=== PATIENT | male | born 1975 | race Caucasian/White ===

== ENCOUNTER 2017-07-30 07:23 | Observation (INO) | payer OTHER ==
--- NOTE | 2017-07-30 08:09 | PDOC ---
History of Present Illness - General Chief Complaint: Pain Stated Complaint: SHORTNESS OF BREATH Time Seen by Provider: 07/30/17 07:58 - History of Present Illness Initial Comments: 07/30/17 09:11 The patient is a 41 year old male with a history of GERD who presents for evaluation of abdominal pain. The patient reports acute onset poorly described abdominal pain beginning yesterday evening and remained constant prompting his presentation to the ED today. He reports some radiation into his back and associated nausea and 2 episodes of non-bilious, non-bloody vomiting. He denies fevers, chills, SOB, Chest pain, or changes with urination or bowel movements with a normal bowel movement earlier today. He denies having symptoms like this in the past and states that this does not feel like his normal GERD. Past History - Past Medical History Allergies/Adverse Reactions: Allergies Allergy/AdvReac Type Severity Reaction Status Date / Time No Known Allergies Allergy Verified 07/30/17 07:53 Home Medications: Ambulatory Orders Amitriptyline HCl [Elavil -] 40 mg PO DAILY 07/30/17 Esomeprazole Magnesium [Nexium 24Hr] 40 mg PO DAILY 07/30/17 GI Disorders: Yes (gerd) Other medical history: migraines - Suicide/Smoking/Psychosocial Hx Smoking Status: Yes Smoking History: Current every day smoker Have you smoked in the past 12 months: No Number of Cigarettes Smoked Daily: 20 Information on smoking cessation initiated: No Hx Alcohol Use: No Drug/Substance Use Hx: No Substance Use Type: None Review of Systems - Review of Systems Comments:: 07/30/17 09:14 Constitutional: No fevers, chills, fatigue, malaise HEENT: No Rhinorrhea, nasal congestion, Cardiovascular: No chest pain, syncope, palpitations, lightheadedness Respiratory: No Cough, SOB, Hemoptysis, Gastrointestinal: Abdominal pain, nausea, vomiting. No Constipation, Diarrhea, Melena Genitourinary: No Dysuria, Frequency, Urgency, Hesitancy, Hematuria, Flank pain Musculoskeletal: No Myalgia, arthralgia Skin: No rashes, bruising, pallor Neurologic: No Headache, Dizziness, Numbness, Weakness, or Tingling *Physical Exam - Vital Signs Last Vital Signs Temp Pulse Resp BP Pulse Ox 97.7 F 95 H 18 137/92 98 07/30/17 07:48 07/30/17 07:48 07/30/17 07:48 07/30/17 07:48 07/30/17 07:48 - Physical Exam Comments: 07/30/17 09:15 General Appearance: Nourished. No Apparent Distress HEENT: EOMI, STEPHAN. No Pharyngeal Erythema, Tonsillar Exudate, Tonsillar Erythema Neck: No Cervical Lymphadenopathy Respiratory/Chest: Lungs Clear, Normal Breath Sounds. No Crackles, Rales, Rhonchi, Wheezing Cardiovascular: Regular Rhythm, Regular Rate. No Murmur, Gallops, Rubs Gastrointestinal/Abdominal: Normal Bowel Sounds, Soft. Diffuse tenderness to palpation worse in the epigastric region. No Guarding, Rebound, Musculoskeletal: No CVA Tenderness Extremity: Normal Capillary Refill Integumentary: Normal Color, Dry, Warm Neurologic: Fully Oriented, Alert, Normal Mood/Affect, Normal Response, ED Treatment Course - LABORATORY CBC & Chemistry Diagram: 07/30/17 08:50 07/30/17 08:50 Medical Decision Making - Medical Decision Making 07/30/17 09:15 The patient is a 41 year old male with a history of GERD who presents for evaluation of abdominal pain. Differential includes but is not limited to: Gastritis, peptic ulcer, pancreatitis, cholecystitis, ACS, infectious, metabolic derangement. Given his physical exam, his symptoms could possibly be caused by gastritis or pancreatitis. We will treat with pepcid, maalox and fluids. We will send a cbc, cmp, troponin, EKG, and lipase. Given his epigastric pain with radiation to the back, we will obtain a gallbladder US to evaluate for cholecystitis. We will continue to monitor and reassess. 07/30/17 12:09 CBC was unremarkable. CMP demonstrate some elevations in his liver enzymes. Gallbladder US demonstrated significant sludge in the gallbladder without evidence of cholecystitis. We discussed the case with Dr. De La Rosa who agrees with further investigation to the patient's symptoms including MRCP and agrees with admission for further management. It is likely his symptoms are due to choledocolithiasis given the sludge in his gallbladder and liver enzyme elevations. We discussed the case with the hospitalist team who agrees with admission. *DC/Admit/Observation/Transfer Diagnosis at time of Disposition: Choledocholithiasis - Discharge Dispostion Condition at time of disposition: Stable Admit: Yes
[2017-07-30] MEDS ORDERED: FAMOTIDINE 20 MG/50 ML IVPB 50 ML IVPB ONE ×2 (08:15→08:44)
[2017-07-30] MEDS ORDERED: SODIUM CHLORIDE 1,000 ML IV STA (08:16)
[2017-07-30] MEDS ORDERED: ONDANSETRON 4 MG/2 ML VIAL IVPUSH ONE (08:30)
[2017-07-30] MEDS ORDERED: MAG HYDROX/AL HYDROX/SIMETH 30 ML UNIT-DOSE CUP PO ONE (08:30)
[2017-07-30] MEDS ORDERED: ACETAMINOPHEN 325 MG TABLET (FP) PO ONE (08:32)
[2017-07-30] MEDS ORDERED: ONDANSETRON 4 MG/2 ML VIAL ONE (08:43)
[2017-07-30] MEDS ORDERED: MAG HYDROX/AL HYDROX/SIMETH 30 ML UNIT-DOSE CUP ONE (08:43)
[2017-07-30] MEDS ORDERED: ACETAMINOPHEN 325 MG TABLET (FP) ONE (08:43)
[2017-07-30 08:58] LABS: BASOPHIL 0.6 % (0-2.0); EOSINOPHIL 0.8 % (0-4.5); MCH 27.9 pg (25.7-33.7); MCHC 33.5 g/dl (32.0-35.9); MEAN CELL VOLUME 83.2 fl (80-96); NEUTROPHILS 75.9 % (42.8-82.8); PLATELET COUNT 146 K/MM3 (134-434); RDW 14.3 % (11.9-15.9); WHITE BLOOD COUNT 6.9 K/mm3 (4.0-10.0)
[2017-07-30 09:32] LABS: ALBUMIN 3.8 g/dl (3.4-5.0); ANION GAP 7 (8-16); BILIRUBIN,TOTAL 0.7 mg/dL (0.2-1.0); CALCIUM 8.6 mg/dL (8.5-10.1); CO2 29 mmol/L (21-32); GLUCOSE,RANDOM 147 mg/dL (74-106); SGOT/AST 161 U/L (15-37); SGPT/ALT 142 U/L (12-78); TOT PROT 7.4 g/dl (6.4-8.2)
--- NOTE | 2017-07-30 09:33 | PDOC ---
Attending Attestation - Resident Resident Name: Raphael Pritchardel - ED Attending Attestation I have performed the following: I have examined & evaluated the patient, The case was reviewed & discussed with the resident, I agree w/resident's findings & plan, Exceptions are as noted - HPI HPI: 07/30/17 09:28 41 year old M c/ hx of obesity, chronic daily headaches, GERD p/w epigastric abdominal pain since 3 am. The patient states that he woke up with 3 am with upper abdominal pain. Tried to vomit twice to try to relieve the pain but didn' t work. States feels differently from his GERD. Radiates towards his back. Denies fevers, chills, diarrhea. - Physicial Exam PE: 07/30/17 09:33 GENERAL: NAD, AAOx3, obese ABD: TTP epigastric, LUQ, RUQ, no rebound, no guarding. Shankar sign negative. - Medical Decision Making 07/30/17 09:34 Vital Signs Temp Pulse Resp BP Pulse Ox 97.7 F 95 H 18 137/92 98 07/30/17 07:48 07/30/17 07:48 07/30/17 07:48 07/30/17 07:48 07/30/17 07:48 41 year old M p/w epigastric pain. Differential includes gastritis, pancreatitis, biliary colic, acute lizette Labs, pain control, RUQ ultrasound. If workup is unrevealing, and patient has uncontrollable pain or persistent pain , consider CT abdomen and pelvis. Heart Score/ECG Review #1 ECG reviewed & interpreted by me at: 09:00 07/30/17 10:38 NSR 85, no std/arturo, normal axis, normal intervals, QTC 452 msec
[2017-07-30 09:34] LABS: ALK PHOS 135 U/L (45-117); CPK 95 IU/L (39-308); TROPONIN I < 0.02 ng/ml (0.00-0.05)
[2017-07-30] MEDS ORDERED: morphine CARPU-JECT 4 MG/1 ML DISP.SYRIN IVPUSH ONE (10:02)
[2017-07-30] MEDS ORDERED: morphine CARPU-JECT 10 MG/1 ML DISP.SYRIN ONE (10:07)
[2017-07-30 10:11] LABS: URINE APPEARANCE CLEAR; URINE BILIRUBIN NEGATIVE (NEGATIVE); URINE BLOOD NEGATIVE (NEGATIVE); URINE COLOR YELLOW; URINE GLUCOSE (UA) NEGATIVE (NEGATIVE); URINE KETONE NEGATIVE (NEGATIVE); URINE NITRITE NEGATIVE (NEGATIVE); URINE PROTEIN NEGATIVE (NEGATIVE); URINE UROBILINOGEN 4.0 E.U/dl mg/dL (0.2-1.0)
[2017-07-30] MEDS ORDERED: SODIUM CHLORIDE 1,000 ML IV SCH (12:45)
--- NOTE | 2017-07-30 13:16 | PN ---
Progress Note (short form) - Note Progress Note: GI Note ( covering Dr Rosenberg) : Esequiel informs me that Dr Pace is his GI physician and he would like for him to consult. Please consult Dr Pace.
--- NOTE | 2017-07-30 13:34 | HP ---
CHIEF COMPLAINT: abdominal pain PCP: HISTORY OF PRESENT ILLNESS: 41 yea old male with a history of GERD, on PPIs, c/o of abdominal pain, nausea, NBNB vomiting, 12hrs after eating out at a [place] buffet. Pain is 10/10, sharp , radiating to back. He states he has had a similar episodes last Monday after eating, although symptoms were not as severe. Patient denies fever, chills, diarrhea. Patient endorses 30lb weight gain in the past few months. He admits to non healthy diet, no exercise, does not follow primary physician. ER course was notable for: -ultrasound showing fatty liver Recent Travel: no PAST MEDICAL HISTORY: GERD PAST SURGICAL HISTORY: none Social History: Smoking:no Alcohol:no Drugs: no Family History: Allergies No Known Allergies Allergy (Verified 07/30/17 07:53) HOME MEDICATIONS: Home Medications Medication Instructions Recorded Amitriptyline HCl [Elavil -] 40 mg PO DAILY 07/30/17 Esomeprazole Magnesium [Nexium 40 mg PO DAILY 07/30/17 24Hr] REVIEW OF SYSTEMS CONSTITUTIONAL: Positive: weight gain Absent: fever, chills, diaphoresis, generalized weakness, malaise, loss of appetite, weight change HEENT: Absent: rhinorrhea, nasal congestion, throat pain, throat swelling, difficulty swallowing, mouth swelling, ear pain, eye pain, visual changes CARDIOVASCULAR: Absent: chest pain, syncope, palpitations, irregular heart rate, lightheadedness , peripheral edema RESPIRATORY: Absent: cough, shortness of breath, dyspnea with exertion, orthopnea, wheezing, stridor, hemoptysis GASTROINTESTINAL: Positive: abdominal pain, abdominal distension, nausea, vomiting, Absent: diarrhea, constipation, melena, hematochezia GENITOURINARY: Absent: dysuria, frequency, urgency, hesitancy, hematuria, flank pain, genital pain MUSCULOSKELETAL: Absent: myalgia, arthralgia, joint swelling, back pain, neck pain SKIN: Absent: rash, itching, pallor HEMATOLOGIC/IMMUNOLOGIC: Absent: easy bleeding, easy bruising, lymphadenopathy, frequent infections ENDOCRINE: Absent: unexplained weight gain, unexplained weight loss, heat intolerance, cold intolerance NEUROLOGIC: Absent: headache, focal weakness or paresthesias, dizziness, unsteady gait, seizure, mental status changes, bladder or bowel incontinence PSYCHIATRIC: Absent: anxiety, depression, suicidal or homicidal ideation, hallucinations. PHYSICAL EXAMINATION GENERAL: obese, awake, alert, and fully oriented, in no acute distress. HEAD: Normal with no signs of trauma. EYES: Pupils equal, round and reactive to light, extraocular movements intact, sclera anicteric, conjunctiva clear. No lid lag. xanthmoma EARS, NOSE, THROAT: Ears normal, nares patent, oropharynx clear without exudates. Moist mucous membranes. NECK: Normal range of motion, supple without lymphadenopathy, JVD, or masses. LUNGS: Breath sounds equal, clear to auscultation bilaterally. No wheezes, and no crackles. No accessory muscle use. HEART: Regular rate and rhythm, normal S1 and S2 without murmur, rub or gallop. ABDOMEN: obese, Soft, nontender, not distended, normoactive bowel sounds, no guarding, no rebound, no masses. No hepatomegaly or splenomegaly. MUSCULOSKELETAL: Normal range of motion at all joints. No bony deformities or tenderness. No CVA tenderness. UPPER EXTREMITIES: 2+ pulses, warm, well-perfused. No cyanosis. No clubbing. No peripheral edema. LOWER EXTREMITIES: 2+ pulses, warm, well-perfused. No calf tenderness. No peripheral edema. NEUROLOGICAL: Cranial nerves II-XII intact. Normal speech. Normal gait. PSYCHIATRIC: Cooperative. Good eye contact. Appropriate mood and affect. SKIN: Warm, dry, normal turgor, no rashes or lesions noted, normal capillary refill. ASSESSMENT/PLAN: 41 year old male with a medical history of GERD, presents with complaints of abdominal pain, n, v, x 1 day admitted under observation for gastritis. #abdominal pain secondary to gastroenteritis -IVF -pain control -slowly increase po intake -low fat/carb meal -US showing fatty liver; bile ducts normal #transaminitis secondary to fatty liver -advise weight loss, diet exercise -hemoglobin a1c -lipid panel #GERD: -protonix VTE: SCD Disposition: obs; f/u GI outpatient Problem List - Problem (1) Gastroenteritis Code(s): K52.9 - NONINFECTIVE GASTROENTERITIS AND COLITIS, UNSPECIFIED (2) Fatty liver Code(s): K76.0 - FATTY (CHANGE OF) LIVER, NOT ELSEWHERE CLASSIFIED (3) Chronic GERD Code(s): K21.9 - GASTRO-ESOPHAGEAL REFLUX DISEASE WITHOUT ESOPHAGITIS Visit type - Emergency Visit Emergency Visit: Yes ED Registration Date: 07/30/17 Care time: The patient presented to the Emergency Department on the above date and was hospitalized for further evaluation of their emergent condition. - New Patient This patient is new to me today: Yes Date on this admission: 07/30/17 - Critical Care Critical Care patient: No
[2017-07-30] MEDS: SODIUM CHLORIDE 1,000 ML IV SCH ×2 (13:56→21:57)
--- NOTE | 2017-07-30 14:05 | HOSP ---
Subjective - Review of Symptoms General: Yes: Malaise, Appetite HEENT: No: Head Aches, Visual Changes, Eye Pain, Ear Pain, Dysphasia, Sinus Congestion, Post Nasal Drip, Sore Throat, Other Pulmonary: No: Dyspnea, Cough, Pleuritic Chest Pain, Other Cardiovascular: No: Chest Pain, Palpitations, Orthopnea, Paroxysmal Noc. Dyspnea , Edema, Light Headedness, Other Gastrointestinal: Yes: Nausea, Vomiting, Abdominal Pain Genitourinary: No: Dysuria, NOSYM, Frequency, Incontinence, Hematuria, Retention , Other Musculoskeletal: Yes: No Symptoms Physical Examination Vital Signs: Vital Signs Temperature 97.7 F 07/30/17 07:48 Pulse Rate 95 H 07/30/17 07:48 Respiratory Rate 18 07/30/17 07:48 Blood Pressure 137/92 07/30/17 07:48 O2 Sat by Pulse Oximetry (%) 98 07/30/17 07:48 Constitutional: Yes: Well Nourished, No Distress, Calm Eyes: Yes: WNL, Conjunctiva Clear, EOM Intact HENT: Yes: WNL Neck: Yes: WNL Cardiovascular: Yes: WNL, Regular Rate and Rhythm, S3 Respiratory: Yes: WNL, Regular, CTA Bilaterally Gastrointestinal: Yes: Abdomen, Obese, Distention, Hypoactive Bowel Sounds, Tenderness ...Rectal Exam: Yes: Deferred Peripheral Pulses: Left Radial: 2+, Right Radial: 2+ Integumentary: Yes: WNL Neurological: Yes: WNL, Alert, Oriented Hospitalist Encounter Assessment: this is a y/o male patient without any PMH presented to the ER with abdominal pain and tenderness that started around 2am, according to the patient he consumed [place] buffet 12 hours prior, he came home in the afternoon didnt feel well ate some grahm crackers and then later on he induced himself to vomit twice to feel better - patient denied any fever or chills prior to the that, and stated that the vomit was clear liquid. 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
--- NOTE | 2017-07-30 14:47 | CON.GI ---
Consult Consult Specialty:: GI Reason for Consultation:: abdominal pain - History of Present Illness Chief Complaint: abdominal pain History of Present Illness: 41 M with h/o GERD on PPI at home states he ate a large meal at [employer] 12 hours prior to onset of symptoms. States upper abdominal pain. Self-induced vomiting x 2 with no relief. On admission, lipase normal, AST/ALT 2-3 x normal. U/S shows normal ducts, and large, fatty liver. Glucose 147. - History Source History Provided By: Patient, Medical Record Limitations to Obtaining History: No Limitations - Past Medical History Gastrointestinal: Yes: GERD - Alcohol/Substance Use Hx Alcohol Use: No - Smoking History Smoking history: Current every day smoker (PPD) Have you smoked in the past 12 months: No Aproximately how many cigarettes per day: 20 Home Medications - Allergies Allergies/Adverse Reactions: Allergies Allergy/AdvReac Type Severity Reaction Status Date / Time No Known Allergies Allergy Verified 07/30/17 07:53 - Home Medications Home Medications: Ambulatory Orders Amitriptyline HCl [Elavil -] 40 mg PO DAILY 07/30/17 Esomeprazole Magnesium [Nexium 24Hr] 40 mg PO DAILY 07/30/17 Physical Exam-GI Vital Signs: Vital Signs Temperature 97.7 F 07/30/17 07:48 Pulse Rate 95 H 07/30/17 07:48 Respiratory Rate 18 07/30/17 07:48 Blood Pressure 137/92 07/30/17 07:48 O2 Sat by Pulse Oximetry (%) 98 07/30/17 07:48 Constitutional: Yes: Well Nourished, Obese (weight 260, height 5'10") Neck: Yes: Supple Cardiovascular: Yes: Regular Rate and Rhythm Respiratory: Yes: CTA Bilaterally ...Auscultate: Yes: Normoactive Bowel Sounds ...Palpate: Yes: Soft, Tenderness, Epigastium Labs: CBC, BMP 07/30/17 08:50 07/30/17 08:50 Hepatic Panel Total Bilirubin 0.7 mg/dL (0.2-1.0) 07/30/17 08:50 AST 161 U/L (15-37) H 07/30/17 08:50 ALT 142 U/L (12-78) H 07/30/17 08:50 Alkaline Phosphatase 135 U/L (45-117) H 07/30/17 08:50 Albumin 3.8 g/dl (3.4-5.0) 07/30/17 08:50 Imaging - Results Ultrasound: Report Reviewed (Enlarged fatty liver, no biliary dilatatioon.) Assessment/Plan Likely acute enlargement of liver secondary to very large high fat, high CHO meal. bile ducts normal LFTs likely represent steatohepatitis Agree with lipid profile, A1c. Patient likely developing metabolic syndrome. Trend LFTs Diabetic diet
[2017-07-30 15:12] LABS: URINE LEUK ESTERASE Negative (NEGATIVE)
[2017-07-30 15:39] LABS: THYROID STIMULATING HORMONE 0.98 uIU/ml (0.358-3.74)
[2017-07-30 16:07] VITALS: BMI 37.3
[2017-07-31] MEDS: SODIUM CHLORIDE 1,000 ML IV SCH ×3 (04:00→17:46)
[2017-07-31 06:09] LABS: BASOPHIL 0.6 % (0-2.0); EOSINOPHIL 1.4 % (0-4.5); MCH 28.6 pg (25.7-33.7); MCHC 34.4 g/dl (32.0-35.9); MEAN CELL VOLUME 83.2 fl (80-96); NEUTROPHILS 74.9 % (42.8-82.8); PLATELET COUNT 154 K/MM3 (134-434); RDW 14.5 % (11.9-15.9); WHITE BLOOD COUNT 5.6 K/mm3 (4.0-10.0)
[2017-07-31 06:46] LABS: ALBUMIN 3.3 g/dl (3.4-5.0); ALK PHOS 148 U/L (45-117); ANION GAP 6 (8-16); BILIRUBIN,TOTAL 0.9 mg/dL (0.2-1.0); CALCIUM 8.2 mg/dL (8.5-10.1); CO2 27 mmol/L (21-32); GLUCOSE,RANDOM 93 mg/dL (74-106); SGOT/AST 207 U/L (15-37); SGPT/ALT 344 U/L (12-78); TOT PROT 6.4 g/dl (6.4-8.2)
[2017-07-31] MEDS ORDERED: PT OWN MED DRAWER 7, Y5N ONE (09:07)
[2017-07-31] MEDS: AMITRIPTYLINE HCL 10 MG TABLET (FP) PO SCH (09:35)
[2017-07-31] MEDS: PANTOPRAZOLE SODIUM 40 MG in SODIUM CHLORIDE 100 ML IVPB SCH (10:08)
--- NOTE | 2017-07-31 16:22 | PN ---
Physical Exam: SUBJECTIVE: Patient seen and examined at the bedside. He denies any shortness of breath or abdominal pain. States he is an unhealthy eater and 1 pack a day smoker. Admits to gaining apx 40 lbs in six months. OBJECTIVE: Vital Signs Period Temp Pulse Resp BP Sys/Hilliard Pulse Ox Last 24 Hr 97.3 F-98.4 F 73-99 18-18 109-121/64-69 99 GENERAL: The patient is awake, alert, and fully oriented, in no acute distress. HEAD: Normal with no signs of trauma. EYES: PERRL, extraocular movements intact, sclera anicteric, conjunctiva clear. No ptosis. ENT: Ears normal, nares patent, oropharynx clear without exudates, moist mucous membranes. NECK: Trachea midline, full range of motion, supple. LUNGS: +scattered expiratory wheezing, tolerating room air, in no acute respiratory distress HEART: Regular rate and rhythm ABDOMEN: Soft, nontender, nondistended, normoactive bowel sounds, no guarding, no rebound, no hepatosplenomegaly, no masses. EXTREMITIES: no edema. NEUROLOGICAL: Normal speech, gait not observed. PSYCH: Normal mood, normal affect. SKIN: Warm, dry, normal turgor, no rashes or lesions noted Laboratory Results - last 24 hr 07/31/17 07/31/17 05:25 05:25 WBC 5.6 RBC 4.27 Hgb 12.2 Hct 35.5 MCV 83.2 MCH 28.6 MCHC 34.4 RDW 14.5 Plt Count 154 MPV 9.0 D Neutrophils % 74.9 Lymphocytes % 18.2 Monocytes % 4.9 Eosinophils % 1.4 Basophils % 0.6 Sodium 138 Potassium 4.3 Chloride 105 Carbon Dioxide 27 Anion Gap 6 L BUN 11 D Creatinine 1.0 Creat Clearance w eGFR > 60 Random Glucose 93 D Calcium 8.2 L Total Bilirubin 0.9 D AST 207 H D ALT 344 H D Alkaline Phosphatase 148 H Total Protein 6.4 Albumin 3.3 L Active Medications Generic Name Dose Route Start Last Admin Trade Name Freq PRN Reason Stop Dose Admin Amitriptyline HCl 40 mg 07/31/17 10:00 07/31/17 09:35 Elavil - PO 40 mg DAILY YOANA Administration Pantoprazole Sodium 40 mg/ 100 mls @ 200 mls/hr 07/31/17 10:00 07/31/17 10:08 Sodium Chloride IVPB 200 mls/hr DAILY YOANA Administration Sodium Chloride 1,000 mls @ 150 mls/hr 07/30/17 13:42 07/31/17 10:08 Normal Saline - IV 150 mls/hr ASDIR YOANA Administration Rosuvastatin Calcium 5 mg 07/31/17 22:00 Crestor - PO HS YOANA ASSESSMENT/PLAN: Patient is a 41 year old male with a history of GERD. He presented to the ED with abdominal pain, nausea, vomiting after consuming a large amount of uzbek food. Patient denies fever, chills, diarrhea. Patient endorses 30lb-40lb weight gain in the past few months. He admits to non healthy diet, no exercise, does not follow primary physician. He is also a current every day smoker, apx 1 pack per day. GI: Abdominal pain likely secondary to gastroenteritis, resolved A/P: Abdominal pain now resolved He denies any nausea, vomiting or diarrhea Pain control as needed, but denies paintoday Now on a low fat/low cholesterol diet Ultrasound imaging shoes fatty liver, normal ducts Protonix daily Elevated AST/ALT A/P: Liver enzymes continue to trend up, monitor trend Patient is asymptomatic Hmg a1c 5.6, not diabetic Lipid panel elevated: started on very low dose of crestor 5mg with caution with current liver disease Psych: Current 1 pack a day smoker, refusing nicotine patch Counseled on importance of cessation, exercise and healthy eating Patient willing F.E.N. Fluids: Normal saline 100cc/hr Electrolytes: monitor Nutrition: low fat, low cholesterol Disposition: Observation. full code. Visit type - Emergency Visit Emergency Visit: Yes ED Registration Date: 07/30/17 Care time: The patient presented to the Emergency Department on the above date and was hospitalized for further evaluation of their emergent condition. - New Patient This patient is new to me today: Yes Date on this admission: 07/31/17 - Critical Care Critical Care patient: No - Discharge Referral Referred to [facility] Med P.C.: No
[2017-07-31] MEDS ORDERED: ROSUVASTATIN CA 5 MG TABLET (FP) PO SCH (22:00)
[2017-08-01] MEDS: SODIUM CHLORIDE 1,000 ML IV SCH ×2 (03:08→09:16)
--- NOTE | 2017-08-01 07:17 | EKG ---
Test Reason : Blood Pressure : / mmHG Vent. Rate : 085 BPM Atrial Rate : 085 BPM P-R Int : 150 ms QRS Dur : 086 ms QT Int : 380 ms P-R-T Axes : 013 -03 023 degrees QTc Int : 452 ms NORMAL SINUS RHYTHM NORMAL ECG NO PREVIOUS ECGS AVAILABLE Confirmed by RAOUL PURCELL MD ([id number]) on 08/01/2017 7:17:29 AM Referred By: Confirmed By:RAOUL PURCELL MD
[2017-08-01 07:44] LABS: BASOPHIL 0.8 % (0-2.0); MCH 27.9 pg (25.7-33.7); MCHC 33.6 g/dl (32.0-35.9); MEAN PLT VOLUME 8.8 fl (7.5-11.1); NEUTROPHILS 61.9 % (42.8-82.8); PLATELET COUNT 134 K/MM3 (134-434); RDW 14.5 % (11.9-15.9); WHITE BLOOD COUNT 4.6 K/mm3 (4.0-10.0)
[2017-08-01 08:56] LABS: CALCIUM 8.2 mg/dL (8.5-10.1)
[2017-08-01 09:02] LABS: ALBUMIN 3.3 g/dl (3.4-5.0); ALK PHOS 163 U/L (45-117); ANION GAP 7 (8-16); BILIRUBIN,TOTAL 0.6 mg/dL (0.2-1.0); CO2 26 mmol/L (21-32); CREATININE 0.9 mg/dL (0.7-1.3); GLUCOSE,RANDOM 85 mg/dL (74-106); SGOT/AST 109 U/L (15-37); SGPT/ALT 285 U/L (12-78); TOT PROT 6.5 g/dl (6.4-8.2)
[2017-08-01] MEDS ORDERED: PT OWN MED DRAWER 7, Y5N ONE (09:12)
[2017-08-01] MEDS: AMITRIPTYLINE HCL 10 MG TABLET (FP) PO SCH (09:17)
[2017-08-01] MEDS: PANTOPRAZOLE SODIUM 40 MG in SODIUM CHLORIDE 100 ML IVPB SCH (11:08)
[2017-08-01 15:33] VITALS: BP 116/64; PULSE 84; TEMP 97.3
--- NOTE | 2017-08-01 15:52 | DS ---
Physical Exam: SUBJECTIVE: Patient seen and examined. He denies any abdominal pain, nausea or vomiting. Asking to go home and in agreement to follow up with Dr. Pace as an outpatient. OBJECTIVE: Vital Signs Period Temp Pulse Resp BP Sys/Hilliard Pulse Ox Last 24 Hr 97.3 F-98.4 F 78-85 18-20 104-124/53-79 100-100 PHYSICAL EXAM GENERAL: The patient is awake, alert, and fully oriented, in no acute distress. HEAD: Normal with no signs of trauma. EYES: PERRL, extraocular movements intact, sclera anicteric, conjunctiva clear. No ptosis. ENT: Ears normal, nares patent, oropharynx clear without exudates, moist mucous membranes. NECK: Trachea midline, full range of motion, supple. LUNGS: +scattered expiratory wheezing, tolerating room air, in no acute respiratory distress HEART: Regular rate and rhythm ABDOMEN: Soft, nontender, nondistended, normoactive bowel sounds, no guarding, no rebound, no hepatosplenomegaly, no masses. EXTREMITIES: no edema. NEUROLOGICAL: Normal speech, gait not observed. PSYCH: Normal mood, normal affect. SKIN: Warm, dry, normal turgor, no rashes or lesions noted LABS Laboratory Results - last 24 hr 08/01/17 08/01/17 07:00 08:40 WBC 4.6 RBC 4.22 Hgb 11.8 Hct 35.0 L MCV 83.0 MCH 27.9 MCHC 33.6 RDW 14.5 Plt Count 134 MPV 8.8 Neutrophils % 61.9 Lymphocytes % 29.4 D Monocytes % 5.9 Eosinophils % 2.0 Basophils % 0.8 Sodium 140 Potassium 3.7 Chloride 107 Carbon Dioxide 26 Anion Gap 7 L BUN 8 D Creatinine 0.9 Creat Clearance w eGFR > 60 Random Glucose 85 Calcium 8.2 L Total Bilirubin 0.6 D AST 109 H D ALT 285 H Alkaline Phosphatase 163 H Total Protein 6.5 Albumin 3.3 L HOSPITAL COURSE: Date of Admission:07/30/17 Date of Discharge: 08/01/17 ASSESSMENT/PLAN: Patient is a 41 year old male with a history of GERD. He presented to the ED with abdominal pain, nausea, vomiting after consuming a large amount of turkmen food. Patient denies fever, chills, diarrhea. Patient endorses 30lb-40lb weight gain in the past few months. He admits to non healthy diet, no exercise, does not follow primary physician but has seen Dr. Avalos in the past. He is also a current every day smoker, apx 1 pack per day. Imaging: MRI abdomen/MRCP: Liver with severe loss of signal on out of phase imaging, suggestive of severe fatty infiltration, no lesions, The gallbladder is distended with no evidence of gallstones. GI: Abdominal pain likely secondary to gastroenteritis, resolved A/P: Abdominal pain now resolved He denies any nausea, vomiting or diarrhea, tolerating diet Denies pain Now on a low fat/low cholesterol diet to continue as an outpatient Ultrasound imaging shoes fatty liver, normal ducts Elevated AST/ALT, improving A/P: Liver enzymes trending down Patient is asymptomatic Hmg a1c 5.6, not diabetic Lipid panel elevated: started on very low dose of crestor 5mg with caution with current liver disease Patient to follow up with Dr. Pace as an outpatient Psych: Current 1 pack a day smoker, refusing nicotine patch Counseled on importance of cessation, exercise and healthy eating Patient willing to quit cold turkey Disposition: Discharge today with close GI follow up. Patient agreeing to go back ad see his primary care physician whom he has not seen in over 5 years. Full code. Minutes to complete discharge: 60 Discharge Summary Reason For Visit: BILE DUCT CALCULUS Current Active Problems Choledocholithiasis (Acute) Chronic GERD (Acute) Fatty liver (Acute) Gastroenteritis (Acute) Condition: Improved - Instructions Diet, Activity, Other Instructions: Mr. Ayala: Please follow up with your PCP and Dr. Pace within 1 week after discharge for further testing and blood work. As discussed, please continue a low fat, low cholesterol diet and exercise by walking on most day of the week. Please consider seeing a casing cleaner. It is important that you follow up with your primary care physician within 1 week after discharge Please call me with any questions that you may have. [facility] [phone] Referrals: Sixto Kay MD [Staff Physician] - 1 Week Sixto Pace MD [Staff Physician] - 1 Week Disposition: HOME - Home Medications Comprehensive Discharge Medication List: Ambulatory Orders Amitriptyline HCl [Elavil -] 40 mg PO DAILY 07/30/17 Esomeprazole Magnesium [Nexium 24Hr] 40 mg PO DAILY 07/30/17 Rosuvastatin [Crestor -] 5 mg PO HS #30 tablet 08/01/17 This patient is new to me today: No Emergency Visit: Yes ED Registration Date: 07/30/17 Care time: The patient presented to the Emergency Department on the above date and was hospitalized for further evaluation of their emergent condition. Critical Care patient: No - Discharge Referral Referred to [facility] Med [facility].C.: No
[2017-08-02] MEDS ORDERED: PANTOPRAZOLE SODIUM 40 MG VIAL IVPUSH SCH (10:00)
== END 2017-08-01 16:25 | disposition home or self-care (01) ==
LOC: JER 07:23 → INTOOBSV 12:58 → UNDOADMOB 12:58 → JERBED 12:58 → J6S 16:19
PROVIDERS: ADMIT Internal Medicine; ATTEND Nurse Practitioner Family
PROC: 3E033GC Introduction of Other Therapeutic Substance into Peripheral Vein, Percutaneous Approach (ICD-10-PCS; principal; 2017-07-30)
PROC: 3E033GC Introduction of Other Therapeutic Substance into Peripheral Vein, Percutaneous Approach (ICD-10-PCS; 2017-07-30)
PROC: 3E033NZ Introduction of Analgesics, Hypnotics, Sedatives into Peripheral Vein, Percutaneous Approach (ICD-10-PCS; 2017-07-30)
PROC: 3E033GC Introduction of Other Therapeutic Substance into Peripheral Vein, Percutaneous Approach (ICD-10-PCS; 2017-07-30)
DX: K80.50 Calculus of bile duct without cholangitis or cholecystitis without obstruction (principal); K52.9 Noninfective gastroenteritis and colitis, unspecified; K76.0 Fatty (change of) liver, not elsewhere classified; K21.9 Gastro-esophageal reflux disease without esophagitis; F17.210 Nicotine dependence, cigarettes, uncomplicated; G43.909 Migraine, unspecified, not intractable, without status migrainosus
CPT/HCPCS: 36415; 74182-TC; 76705-TC; 80053; 80061; 81003; 82550; 83036; 83690; 83721; 84443; 84484; 85025; 93005; 93010; 99283-25; G0378

== ENCOUNTER 2018-04-27 23:52 | Emergency (ER) | payer OTHER ==
--- NOTE | 2018-04-28 00:02 | PDOC ---
History of Present Illness - General History Source: Patient Exam Limitations: No Limitations <Edie Curm - Last Filed: 04/28/18 03:31> - History of Present Illness Initial Comments: 04/28/18 01:18 The patient is a 42 year old male, with a significant past medical history of GERD, fatty liver, HLD, and headaches, who presents to the emergency department with, 6 hours of abdominal pain. He describes his pain as diffuse, sharp, constant, cramping. His pain worsens in his periumbilical region. He reports associated back pain which began prior to his abdominal pain. He describes his back pain as bilateral middle back pain. His pain is similar to an episode in where he was diagnosed with a fatty liver. Between July and October he reports losing 30 lbs and came off his medications. Over the course of the past 2 months, he went on multiple vacations and has regained 30 lbs. He took his medications 4 hours ago which worsened his pain. He denies any recent fevers, chills, headache or dizziness. He denies any recent nausea, vomit, diarrhea or constipation. He denies any recent chest pain. He denies any recent dysuria, frequency, urgency or hematuria. Allergies: NKA Past surgical history: None reported. Social History: Smoker (20 cigarettes per day). <Carin Land - Last Filed: 04/28/18 03:39> - General Stated Complaint: STOMACH PAIN Time Seen by Provider: 04/28/18 00:01 Past History - Past Medical History GI Disorders: Yes (gerd) - Suicide/Smoking/Psychosocial Hx Smoking Status: Yes Smoking History: Current every day smoker Have you smoked in the past 12 months: No Number of Cigarettes Smoked Daily: 20 'Breaking Loose' booklet given: 07/30/17 Hx Alcohol Use: No Drug/Substance Use Hx: No Substance Use Type: None <Edie Crum - Last Filed: 04/28/18 03:31> <Carin Land - Last Filed: 04/28/18 03:39> - Past Medical History Allergies/Adverse Reactions: Allergies Allergy/AdvReac Type Severity Reaction Status Date / Time No Known Allergies Allergy Verified 04/28/18 00:10 Home Medications: Ambulatory Orders Amitriptyline HCl [Elavil -] 40 mg PO DAILY 07/30/17 Esomeprazole Magnesium [Nexium 24Hr] 40 mg PO DAILY 07/30/17 Rosuvastatin [Crestor -] 5 mg PO HS #30 tablet 08/01/17 Dicyclomine HCl [Bentyl -] 20 mg PO Q8H PRN #21 tablet 04/28/18 Review of Systems - Review of Systems Comments:: 04/28/18 01:18 CONSTITUTIONAL: No fever, no chills, no fatigue EYES: No visual changes ENT: No ear pain, no sore throat CARDIOVASCULAR: No chest pain, no palpitations RESPIRATORY: No cough, no SOB +GI: Abdominal pain. No nausea, no vomiting, no constipation, no diarrhea GENITOURINARY: No dysuria, no frequency, no hematuria +MUSCULOSKELETAL: Back pain. No joint pain, no myalgias SKIN: No rash NEURO: No headache All Other Systems: Reviewed and Negative <Carin Land - Last Filed: 04/28/18 03:39> *Physical Exam - Vital Signs Last Vital Signs Temp Pulse Resp BP Pulse Ox 98.2 F 86 20 124/80 100 04/28/18 00:10 04/28/18 00:10 04/28/18 00:10 04/28/18 00:10 04/28/18 00:10 - Physical Exam Comments: 04/28/18 01:22 GENERAL: The patient is in no acute distress. HEAD: Normal with no signs of trauma. EYES: PERRLA, EOMI, sclera anicteric, conjunctiva clear. ENT: Ears normal, nares patent, oropharynx clear without exudates. Moist mucous membranes. NECK: Normal range of motion, supple without lymphadenopathy, JVD, or masses. LUNGS: Breath sounds equal, clear to auscultation bilaterally. No wheezes, and no crackles. HEART:Regular rate and rhythm, normal S1 and S2 without murmur, rub or gallop. +ABDOMEN: RUQ and epigastric pain. Positive Glover Sign. Soft, normoactive bowel sounds. No guarding, no rebound. No masses palpable. EXTREMITIES: Normal range of motion, no edema. No clubbing or cyanosis. No erythema, or tenderness. NEUROLOGICAL: Cranial nerves II through XII grossly intact. Normal speech. No focal neurological deficits. MUSCULOSKELETAL: Back non-tender to palpation, no CVA tenderness SKIN: Warm, Dry, normal turgor, no rashes or lesions noted. <Carin Land - Last Filed: 04/28/18 03:39> ED Treatment Course - LABORATORY CBC & Chemistry Diagram: 04/28/18 01:25 04/28/18 01:25 <RadamesEdie - Last Filed: 04/28/18 03:31> - LABORATORY CBC & Chemistry Diagram: 04/28/18 01:25 04/28/18 01:25 - RADIOLOGY Radiology Studies Ordered: 04/28/18 03:36 EXAM: CT ABDOMEN AND PELVIS WITH CONTRAST No bowel obstruction, colitis, diverticulitis, free fluid or free air. Normal appendix. Unremarkable pancreas, kidneys and gallbladder. Splenomegaly. Small left inguinal region hernia containing fat. Individualized dose optimization techniques were used for this CT. Read by: Cristy Rossi M.D. EXAM: ULTRASOUND ABDOMEN INCOMPLETE Hepatomegaly. Top normal size gallbladder. No cholelithiasis or acute cholecystitis. Unremarkable right kidney. Normal common duct diameter, 4 mm. Aorta and pancreas obscured by bowel gas. Read by: Cristy Rossi M.D. <Carin Land - Last Filed: 04/28/18 03:39> Medical Decision Making - Medical Decision Making 04/28/18 01:29 42 yo M h/o fatty liver s/p admission for abdominal pain and transaminitis ultimately dx with fatty liver Pt states he lost 30 pounds He recently regained some of that weight due to dietary changes He states that at 6pm he developed severe abdominal pain Pain is most severe in the RUQ and epigastric region No vomiting No diarrhea No recent international travel No undercooked meat No fevers or chills Pain is described as crampy located in the epigastrium Began in his back actually and radiated to the epigastrium He has tried multiple things to get comfortable but was unable to Exam: RRR CTA Abd: soft, tender to palpation in the epigastrium and RUQ, voluntary guarding 04/28/18 01:59 Laboratory Tests 04/28/18 01:25 WBC 9.7 Hgb 13.8 Hct 40.9 D Plt Count 191 D Neutrophils % 72.0 Lymphocytes % 21.5 D 04/28/18 02:17 US - no cholelithiasis or cholecystitis Laboratory Tests 08/01/17 04/28/18 08:40 01:25 Sodium 140 Potassium 4.3 Chloride 102 Carbon Dioxide 29 BUN 8 D 19 H Creatinine 0.9 1.0 Random Glucose 123 H D Total Bilirubin 0.6 D 0.9 AST 109 H D 88 H ALT 285 H 64 D Alkaline Phosphatase 163 H 120 H Total Amylase [address] pending 04/28/18 03:32 CT nml Will discharge to home with Bentyl Follow up with Gi Return to the ER for any other concerns or complaints Clinical Impression: Abdominal pain, initial presentation <Eide Crum - Last Filed: 04/28/18 03:31> *DC/Admit/Observation/Transfer - Discharge Dispostion Decision to Admit order: No <Edie Crum - Last Filed: 04/28/18 03:31> - Attestations Scribe Attestion: 04/28/18 01:19 Documentation prepared by Carin Land, acting as medical laboratory technicians for Edie Crum MD. <Carin Land - Last Filed: 04/28/18 03:39> Diagnosis at time of Disposition: Fatty liver Abdominal pain Qualifiers: Abdominal location: unspecified location Qualified Code(s): R10.9 - Unspecified abdominal pain - Discharge Dispostion Condition at time of disposition: Stable - Prescriptions Prescriptions: Dicyclomine HCl [Bentyl -] 20 mg PO Q8H PRN #21 tablet PRN Reason: abdominal pain - Referrals Referrals: Sixto Pace MD [Primary Care Provider] - - Patient Instructions Printed Discharge Instructions: DI for Abdominal Pain-Adult Additional Instructions: Mr. Antunez Please read the [facility] ED Care Sheets describing your diagnosis. PLEASE NOTE we suggest at a minimum that you review all symptoms and final test results with a physician that will provide ongoing care for you. THANK YOU for allowing us to help begin your care of this latest issue. Keep in mind the treatment performed in the Emergency Department is NOT complete until you have followed up with your Doctor. We want you to return to the ED as soon as possible if symptoms get worse or if you have any problems whatsoever. We advised you to take the following medication(s) as directed: Bentyl.
[2018-04-28 00:12] VITALS: BP 124/80; PULSE 86; TEMP 98.2; BMI 35.6
[2018-04-28] MEDS ORDERED: FAMOTIDINE 20 MG/50 ML IVPB 20 MG/50 ML MG IVPB ONE ×2 (00:32→01:32)
[2018-04-28] MEDS ORDERED: SODIUM CHLORIDE 1,000 ML IV STA (00:32)
[2018-04-28] MEDS ORDERED: morphine CARPU-JECT 4 MG/1 ML DISP.SYRIN IVPUSH ONE (00:36)
[2018-04-28] MEDS ORDERED: morphine SULFATE 4 MG/ML VIAL ONE (01:32)
[2018-04-28 01:35] LABS: BASO % 0.4 % (0-2.0); EOS % 0.8 % (0-4.5); HEMATOCRIT 40.9 % (35.4-49); HEMOGLOBIN 13.8 GM/dL (11.7-16.9); LYMPH % 21.5 % (8-40); MCH 28.3 pg (25.7-33.7); MCHC 33.6 g/dl (32.0-35.9); MEAN CELL VOLUME 84.1 fl (80-96); MEAN PLT VOLUME 8.6 fl (7.5-11.1); MONO % 5.3 % (3.8-10.2); PLATELET COUNT 191 K/MM3 (134-434); RBC 4.86 M/mm3 (4.00-5.60); RDW 14.1 % (11.9-15.9); WHITE BLOOD COUNT 9.7 K/mm3 (4.0-10.0)
[2018-04-28 02:03] LABS: ALBUMIN 4.5 g/dl (3.4-5.0); ALK PHOS 120 U/L (45-117); AMYLASE 46 U/L (25-115); ANION GAP 9 (8-16); BILIRUBIN,TOTAL 0.9 mg/dL (0.2-1.0); BLOOD UREA NITROGEN 19 mg/dL (7-18); CALCIUM 9.3 mg/dL (8.5-10.1); CHLORIDE 102 mmol/L (98-107); CO2 29 mmol/L (21-32); GLUCOSE,RANDOM 123 mg/dL (74-106); LIPASE 186 U/L (73-393); SGPT/ALT 64 U/L (12-78); SODIUM 140 mmol/L (136-145); TOT PROT 8.1 g/dl (6.4-8.2)
[2018-04-28 02:05] LABS: POTASSIUM 4.3 mmol/L (3.5-5.1); SGOT/AST 88 U/L (15-37)
[2018-04-28 03:06] LABS: URINE APPEARANCE CLEAR; URINE BILIRUBIN NEGATIVE (<2.0 mg/dL); URINE COLOR YELLOW; URINE GLUCOSE (UA) NEGATIVE (NEGATIVE); URINE KETONE NEGATIVE (NEGATIVE); URINE LEUK ESTERASE NEGATIVE (NEGATIVE); URINE NITRITE NEGATIVE (NEGATIVE); URINE PROTEIN NEGATIVE (NEGATIVE)
== END 2018-04-28 03:57 | disposition home or self-care (01) ==
LOC: JER 23:52
PROC: 3E033GC Introduction of Other Therapeutic Substance into Peripheral Vein, Percutaneous Approach (ICD-10-PCS; principal; 2018-04-27)
PROC: 3E033NZ Introduction of Analgesics, Hypnotics, Sedatives into Peripheral Vein, Percutaneous Approach (ICD-10-PCS; 2018-04-27)
DX: K76.0 Fatty (change of) liver, not elsewhere classified (principal); K21.9 Gastro-esophageal reflux disease without esophagitis; R51 Headache; E78.00 Pure hypercholesterolemia, unspecified; M54.9 Dorsalgia, unspecified; F17.210 Nicotine dependence, cigarettes, uncomplicated
CPT/HCPCS: 36415; 74177-TC; 76705-TC; 80053; 81003; 82150; 83605; 83690; 85025; 87086; 99285-25; J7030

== ENCOUNTER 2018-04-29 07:27 | Inpatient (IN) | payer OTHER ==
[2018-04-29 07:58] VITALS: BMI 35.6
--- NOTE | 2018-04-29 08:01 | PDOC ---
History of Present Illness <Chris Dinero - Last Filed: 04/29/18 10:53> - History of Present Illness Initial Comments: 42 year old male with PMH of GERD, fatty liver, HLD, and persistent headaches presenting to the ED with 6 hours of abdominal pain. He describes his pain as sharp, epigastric, and constant, sharp, and constant. It is not worse when laying down and he denies sour taste in mouth or burning sensation in throat. He was here yesterday in our department for the same issue and RUQ US did not reveal choleliths or other pathology and he was discharged with Bentyl. He beleives that this could be related to his magnesium ingestion as he experienced the pain last night after taking his Mag at 1:30 AM. Yesterday he also complained of back pain but today he does not complain of this. His pain yesterday and today is similar to an episode in 07/2017 where he was diagnosed with a fatty liver. Between July and October he reports losing 30 lbs but unfortunately gained it back over the course of the past 2 months. He tried peptobismal without relief. He also complains of an intermittent chest pain for the past 2 weeks that doesn't wake him out of his sleep overly affect his lifestyle (non radiating, non-exertional, non-pleuritic, and non-positional). Denies fevers, chills, nause,a vomiting, diarrhea, constipation, SOB, or other symptoms. 04/29/18 08:04 <Ralph Mckinney - Last Filed: 04/29/18 11:42> - General Chief Complaint: Pain Stated Complaint: SHORT OF BREATH Time Seen by Provider: 04/29/18 08:00 Past History <Chris Dinero - Last Filed: 04/29/18 10:53> - Past Medical History COPD: No GI Disorders: Yes (gerd) - Suicide/Smoking/Psychosocial Hx Smoking Status: Yes Smoking History: Current every day smoker Have you smoked in the past 12 months: No Number of Cigarettes Smoked Daily: 20 Information on smoking cessation initiated: No 'Breaking Loose' booklet given: 07/30/17 Hx Alcohol Use: No Drug/Substance Use Hx: No Substance Use Type: None <Ralph Mckinney - Last Filed: 04/29/18 11:42> - Past Medical History Allergies/Adverse Reactions: Allergies Allergy/AdvReac Type Severity Reaction Status Date / Time No Known Allergies Allergy Verified 04/29/18 07:55 Home Medications: Ambulatory Orders Amitriptyline HCl [Elavil -] 40 mg PO DAILY 07/30/17 Esomeprazole Magnesium [Nexium 24Hr] 40 mg PO DAILY 07/30/17 Rosuvastatin [Crestor -] 5 mg PO HS #30 tablet 08/01/17 Dicyclomine HCl [Bentyl -] 20 mg PO Q8H PRN #21 tablet 04/28/18 Review of Systems - Review of Systems Constitutional: No: Chills, Diaphoresis, Fever HEENTM: No: Blurred Vision Respiratory: No: Cough, Orthopnea, Shortness of Breath, Stridor, Wheezing ABD/GI: No: Diarrhea, Nausea, Vomiting : No: Burning, Dysuria, Discharge Musculoskeletal: No: Back Pain, Joint Pain, Muscle Pain Integumentary: No: Bruising, Erythema, Flushing, Lesions Neurological: No: Headache, Numbness, Paresthesia Psychiatric: No: Anxiety, Depression Hematologic/Lymphatic: No: Anemia, Blood Clots <Ralph Mckinney - Last Filed: 04/29/18 11:42> *Physical Exam - Vital Signs Last Vital Signs Temp Pulse Resp BP Pulse Ox 98.3 F 85 18 121/72 99 04/29/18 07:29 04/29/18 07:29 04/29/18 07:29 04/29/18 07:29 04/29/18 08:15 <Chris Dinero - Last Filed: 04/29/18 10:53> - Vital Signs Last Vital Signs Temp Pulse Resp BP Pulse Ox 98.3 F 85 18 121/72 100 04/29/18 07:29 04/29/18 07:29 04/29/18 07:29 04/29/18 07:29 04/29/18 07:29 - Physical Exam General Appearance: Yes: Nourished, Appropriately Dressed. No: Apparent Distress HEENT: positive: EOMI, STEPHAN, Normal ENT Inspection Neck: positive: Trachea midline, Normal Thyroid, Supple. negative: Tender, Rigid Respiratory/Chest: positive: Lungs Clear, Normal Breath Sounds. negative: Chest Tender, Respiratory Distress, Accessory Muscle Use Cardiovascular: positive: Regular Rhythm, Regular Rate Gastrointestinal/Abdominal: positive: Normal Bowel Sounds, Flat, Soft. negative : Tender Musculoskeletal: positive: Normal Inspection. negative: CVA Tenderness Extremity: positive: Normal Capillary Refill, Normal Inspection, Normal Range of Motion. negative: Tender Integumentary: positive: Normal Color, Dry, Warm Neurologic: positive: Fully Oriented, Alert, Normal Mood/Affect, Normal Response , Motor Strength 5/5 <Ralph Mckinney - Last Filed: 04/29/18 11:42> ED Treatment Course - LABORATORY CBC & Chemistry Diagram: 04/29/18 08:30 04/29/18 08:30 - ADDITIONAL ORDERS Additional order review: Laboratory Results 04/29/18 08:30 Sodium 139 Potassium 4.0 Chloride 105 Carbon Dioxide 26 Anion Gap 8 BUN 13 Creatinine 0.9 Creat Clearance w eGFR > 60 Random Glucose 124 H Calcium 9.0 Magnesium 2.1 Total Bilirubin 3.4 H D AST 192 H D ALT 329 H D Alkaline Phosphatase 221 H D Total Protein 7.2 Albumin 3.9 Total Amylase 37 Lipase 123 04/29/18 08:30 RBC 4.71 MCV 84.1 MCHC 34.5 RDW 14.2 MPV 8.6 Neutrophils % 82.5 Lymphocytes % 11.6 D Monocytes % 4.5 Eosinophils % 0.9 Basophils % 0.5 - Medications Given in the ED: ED Medications Discontinued Medications Generic Name Dose Route Start Last Admin Trade Name Himanshuq PRN Reason Stop Dose Admin Al Hydroxide/Mg Hydroxide 30 ml 04/29/18 08:10 04/29/18 08:30 Mylanta Oral Suspension - PO 04/29/18 08:11 30 ml ONCE ONE Administration Famotidine/Sodium Chloride 20 mg in 50 mls @ 100 mls/hr 04/29/18 08:10 08:30 Pepcid 20 Mg Premixed Ivpb - IVPB 04/29/18 08:39 100 mls/hr ONCE ONE Administration Morphine Sulfate 2 mg 04/29/18 09:42 04/29/18 09:45 Morphine Injection - IVPUSH 04/29/18 09:43 2 mg ONCE ONE Administration Sucralfate 1 gm 04/29/18 09:19 04/29/18 09:25 Carafate Oral Suspension - PO 04/29/18 09:20 Not Given ONCE ONE <Chris Dinero - Last Filed: 04/29/18 10:53> - LABORATORY CBC & Chemistry Diagram: 04/29/18 08:30 04/29/18 08:30 <Ralph Mckinney - Last Filed: 04/29/18 11:42> Medical Decision Making - Medical Decision Making 04/29/18 09:[address] Pace a 9:35 pm. Second call made at 9:42 pm. Awaiting call back. Documentation prepared by Chris Dinero, acting as medical assistant prn for Ted Atkinson MD. 04/29/18 10:53 Dr. Pace called back and discussed case with Dr. Mckinney. <Chris Dinero - Last Filed: 04/29/18 10:53> - Medical Decision Making 42 year old male with PMH of fatty liver and episodes of abdominal pain. Seen in our ED yesterday with US and CT demonstrating no new pathology. Originally, I believed that the common bile duct was not visualized as there was no specific mention of it in the US but after discussing the read with the US staff , they informed me that the read did not find any pathology in the CBD. Regardless, patient has intractable abdominal pain to oral home medications but controlled reasonably well in the ED with IV morphine. Furthermore, patient has transaminitis, elevated bilirubin, and elevated alk phosphatase. Discussed with Dr. Pace and will repeat US as there may be evidence of stone now, and likely set up for MRCP for more detailed evaluation. Patent started on Ursidiol 300 BID + ceftriaxone and fluids. 04/29/18 11:34 <Ralph Mckinney - Last Filed: 04/29/18 11:42> *DC/Admit/Observation/Transfer <Chris Dinero - Last Filed: 04/29/18 10:53> - Discharge Dispostion Decision to Admit order: Yes <Ralph Mckinney - Last Filed: 04/29/18 11:42> Diagnosis at time of Disposition: Transaminitis, Intractable abdominal pain, Hyperbilirubinemia, Elevated alkaline phosphatase level - Discharge Dispostion Condition at time of disposition: Stable - Referrals Referrals: Sixto Pace MD [Primary Care Provider] - - Patient Instructions - Post Discharge Activity
[2018-04-29] MEDS ORDERED: FAMOTIDINE 20 MG/50 ML IVPB 20 MG/50 ML MG IVPB ONE ×2 (08:10→08:19)
[2018-04-29] MEDS ORDERED: MAG HYDROX/AL HYDROX/SIMETH 30 ML UNIT-DOSE CUP PO ONE (08:10)
[2018-04-29] MEDS ORDERED: MAG HYDROX/AL HYDROX/SIMETH 30 ML UNIT-DOSE CUP ONE (08:18)
[2018-04-29 08:52] LABS: BASO % 0.5 % (0-2.0); EOS % 0.9 % (0-4.5); HEMATOCRIT 39.6 % (35.4-49); HEMOGLOBIN 13.7 GM/dL (11.7-16.9); LYMPH % 11.6 % (8-40); MCHC 34.5 g/dl (32.0-35.9); MEAN CELL VOLUME 84.1 fl (80-96); MEAN PLT VOLUME 8.6 fl (7.5-11.1); MONO % 4.5 % (3.8-10.2); NEUT % 82.5 % (42.8-82.8); PLATELET COUNT 142 K/MM3 (134-434); RBC 4.71 M/mm3 (4.00-5.60); RDW 14.2 % (11.9-15.9); WHITE BLOOD COUNT 5.9 K/mm3 (4.0-10.0)
[2018-04-29 09:17] LABS: ALBUMIN 3.9 g/dl (3.4-5.0); AMYLASE 37 U/L (25-115); ANION GAP 8 (8-16); BILIRUBIN,TOTAL 3.4 mg/dL (0.2-1.0); BLOOD UREA NITROGEN 13 mg/dL (7-18); CHLORIDE 105 mmol/L (98-107); CO2 26 mmol/L (21-32); CREATININE 0.9 mg/dL (0.7-1.3); GLUCOSE,RANDOM 124 mg/dL (74-106); LIPASE 123 U/L (73-393); MAGNESIUM 2.1 mg/dL (1.8-2.4); SGOT/AST 192 U/L (15-37); SGPT/ALT 329 U/L (12-78); SODIUM 139 mmol/L (136-145); TOT PROT 7.2 g/dl (6.4-8.2)
[2018-04-29 09:18] LABS: ALK PHOS 221 U/L (45-117)
[2018-04-29] MEDS: SUCRALFATE 1 GM/10 ML UNIT DOSE CUPS PO ONE ×2 (09:25→10:15)
[2018-04-29] MEDS ORDERED: SUCRALFATE 1 GM TABLET (FP) ONE (09:32)
[2018-04-29] MEDS ORDERED: morphine CARPU-JECT 2 MG/1 ML DISP.SYRIN IVPUSH ONE (09:42)
[2018-04-29] MEDS ORDERED: MORPHINE SULFATE 2 MG/ML VIAL ONE (09:52)
[2018-04-29] MEDS ORDERED: CEFTRIAXONE 1,000 MG in DEXTROSE 5%-WATER - 50 ML IVPB ONE (10:44)
[2018-04-29] MEDS ORDERED: SODIUM CHLORIDE 0.9% 500 ML INFUS.BAG IV ONE (10:48)
--- NOTE | 2018-04-29 11:36 | PDOC ---
Attending Attestation - Resident Resident Name: [email or web address] - ED Attending Attestation I have performed the following: I have examined & evaluated the patient, The case was reviewed & discussed with the resident, I agree w/resident's findings & plan, Exceptions are as noted - HPI HPI: 04/29/18 11:35 42-year-old male with a history of GERD, fatty liver disease, hyperlipidemia presents emergency Department with abdominal pain for 2 days. Patient reports that the pain is localized to his epigastric area and he states he's had similar pain in the past that he relates to his fatty liver disease. Patient was seen in the emergency department here yesterday for the same, had an ultrasound and CT scan that did not reveal acute pathology. Last BM yest was normal. Pt also notes intermittent sternal non radiating dull CP for 3 weeks with no associated SOB, diaphoresis, N/V, dizziness, weakness. Denies trauma. Denies chest pain over the last 3 days. - Physicial Exam PE: 04/29/18 11:46 GENERAL: Awake, alert, and fully oriented, in no acute distress HEAD: No signs of trauma EYES: PERRLA, EOMI, sclera anicteric, conjunctiva clear ENT: Auricles normal inspection, hearing grossly normal, nares patent, oropharynx clear without exudates. Moist mucosa NECK: Normal ROM, supple, no lymphadenopathy, JVD, or masses LUNGS: Breath sounds equal, clear to auscultation bilaterally. No wheezes, and no crackles HEART: Regular rate and rhythm, normal S1 and S2, no murmurs, rubs or gallops ABDOMEN: Soft, +epigastric ttp, normoactive bowel sounds. No guarding, no rebound. No masses EXTREMITIES: Normal range of motion, no edema. No clubbing or cyanosis. No cords, erythema, or tenderness NEUROLOGICAL: Normal speech, cranial nerves intact, negative pronator drift, 5/ 5 strength in all 4 extremities, normal sensation to light touch in all 4 extremities, normal cerebellar exam, normal gait, normal reflexes and tone SKIN: Warm, Dry, normal turgor, no rashes or lesions noted. - Medical Decision Making 04/29/18 11:46 42yo M presents to the ED for the second time in 2 days with epigastric pain. Vitals wnl. Exam with epigastric ttp. Labs today with increasing AST, ALT, and Alk phos, concerning for possible obstruction? CT and US yest with no acute findings. Case discussed with his GI Dr. Pace, pt admitted for further w/u. In light of 3 weeks of CP, EKG was obtained which is non ischemic. Heart Score/ECG Review #1 04/29/18 11:48 Twelve-lead EKG was performed and reviewed by me. Normal sinus rhythm, rate 76. Normal axis. No ST elevations. Isolated T-wave inversion in lead 3.
[2018-04-29] MEDS ORDERED: CEFTRIAXONE 1 GM/50 ML BAG ONE (12:08)
[2018-04-29 12:24] LABS: BILIRUBIN,DIRECT 2.4 mg/dL (0.0-0.2)
[2018-04-29] MEDS: URSODIOL 300 MG CAPSULE PO SCH ×2 (12:31→21:22)
--- NOTE | 2018-04-29 12:58 | HP ---
PCP: Sixto Kay CHIEF COMPLAINT: Abdominal pain HISTORY OF PRESENT ILLNESS: This is a 42 year old man who comes to the ED this morning complaining of abdominal pain. The pain started suddenly the evening of April 27. It was periumbilical and in his mid back. He was seen in the ED. CT was unremarkable except for splenomegaly and a small fat-containing left inguinal hernia. RUQ US showed hepatomegaly, fatty liver, no cholelithiasis or cholecystitis. Labs were normal. He was discharged on Bentyl. Last night the pain became worse. He reports it is now in the epigastric and RUQ areas. He denies fever, chills, nausea, vomiting, diarrhea, constipation, melena, rectal bleeding, jaundice. He had a similar episode in Jul 2017 which he says was attributed to fatty liver. At that time, he had an MRCP which showed fatty liver and a distended gallbladder with no gallstones. Since then, he changed his diet and lost 30 lbs in 3 months. Recently he took trips to [place] and [place] and has gained 18 lbs. Today, he has been given morphine, Pepcid, Rocephin, and Mylanta, and he says he is feeling better. PAST MEDICAL HISTORY: GERD, fatty liver, obesity, headaches, hyperlipidemia PAST SURGICAL HISTORY: None Allergies No Known Allergies Allergy (Verified 04/29/18 07:55) Home Medications Medication Instructions Recorded Amitriptyline HCl [Elavil -] 40 mg PO DAILY 07/30/17 Esomeprazole Magnesium [Nexium 40 mg PO DAILY 07/30/17 24Hr] Rosuvastatin [Crestor -] 5 mg PO HS #30 tablet 08/01/17 Dicyclomine HCl [Bentyl -] 20 mg PO Q8H PRN #21 tablet 04/28/18 Social History: Smoking: Smokes 1 PPD Alcohol: Denies Drugs: Former marijuana Recent Travel: [place], [place] Family History: Father - diabetes, HTN REVIEW OF SYSTEMS CONSTITUTIONAL: Present: Intentional weight loss. Absent: fever, chills, diaphoresis, generalized weakness, malaise, loss of appetite HEENT: Absent: rhinorrhea, nasal congestion, throat pain, throat swelling, difficulty swallowing, mouth swelling, ear pain, eye pain, visual changes CARDIOVASCULAR: Absent: chest pain, syncope, palpitations, lightheadedness, peripheral edema RESPIRATORY: Absent: cough, shortness of breath, dyspnea with exertion, orthopnea, wheezing, stridor, hemoptysis GASTROINTESTINAL: Present: Abdominal pain. Absent: abdominal pain, abdominal distension, nausea, vomiting, diarrhea, constipation, melena, hematochezia GENITOURINARY: Absent: dysuria, frequency, urgency, hesitancy, hematuria, flank pain MUSCULOSKELETAL: Absent: myalgia, arthralgia, joint swelling, back pain, neck pain SKIN: Absent: rash, itching, pallor HEMATOLOGIC/IMMUNOLOGIC: Absent: easy bleeding, easy bruising, lymphadenopathy, frequent infections ENDOCRINE: Absent: unexplained weight gain, unexplained weight loss, heat intolerance, cold intolerance NEUROLOGIC: Absent: headache, focal weakness or paresthesias, dizziness, unsteady gait, seizure, mental status changes, bladder or bowel incontinence PSYCHIATRIC: Absent: anxiety, depression, suicidal or homicidal ideation, hallucinations. PHYSICAL EXAMINATION Vital Signs - 24 hr 04/29/18 04/29/18 04/29/18 07:29 08:15 10:15 Temperature 98.3 F Pulse Rate 85 Pulse Rate [ 70 Apical] Respiratory 18 16 Rate Blood Pressure 121/72 Blood Pressure 110/85 [Left Arm] O2 Sat by Pulse 100 99 99 Oximetry (%) GENERAL: Awake, alert, and fully oriented, in no acute distress. HEAD: Normal with no signs of trauma. EYES: Pupils equal, round and reactive to light, extraocular movements intact, sclerae anicteric, conjunctivae clear. EARS, NOSE, THROAT: Ears normal, nares patent, oropharynx clear without exudates. Moist mucous membranes. NECK: Normal range of motion, supple without lymphadenopathy, JVD, or masses. LUNGS: Breath sounds equal, clear to auscultation bilaterally. No wheezes, and no crackles. No accessory muscle use. HEART: Regular rate and rhythm, normal S1 and S2 without murmur, rub or gallop. ABDOMEN: Obese, soft, nontender, not distended, normoactive bowel sounds, no guarding, no rebound, no masses. MUSCULOSKELETAL: Normal range of motion at all joints. No bony deformities or tenderness. No CVA tenderness. UPPER EXTREMITIES: 2+ pulses, warm, well-perfused. No cyanosis. No clubbing. No peripheral edema. LOWER EXTREMITIES: 2+ pulses, warm, well-perfused. No calf tenderness. No peripheral edema. NEUROLOGICAL: Cranial nerves II-XII intact. Normal speech. Gait not observed. PSYCHIATRIC: Cooperative. Good eye contact. Appropriate mood and affect. SKIN: Warm, dry, normal turgor, no rashes or lesions noted, normal capillary refill. Laboratory Results - last 24 hr 04/29/18 04/29/18 08:30 08:30 WBC 5.9 RBC 4.71 Hgb 13.7 Hct 39.6 MCV 84.1 MCH 29.0 MCHC 34.5 RDW 14.2 Plt Count 142 D MPV 8.6 Absolute Neuts (auto) 4.9 Neutrophils % 82.5 Lymphocytes % 11.6 D Monocytes % 4.5 Eosinophils % 0.9 Basophils % 0.5 Nucleated RBC % 0 Sodium 139 Potassium 4.0 Chloride 105 Carbon Dioxide 26 Anion Gap 8 BUN 13 Creatinine 0.9 Creat Clearance w eGFR > 60 Random Glucose 124 H Calcium 9.0 Magnesium 2.1 Total Bilirubin 3.4 H D AST 192 H D ALT 329 H D Alkaline Phosphatase 221 H D Total Protein 7.2 Albumin 3.9 Total Amylase 37 Lipase 123 ASSESSMENT/PLAN: This is a 42 year old man with a history of fatty liver, hyperlipidemia, obesity , headaches, GERD who presented to the ED with abdominal pain. Yesterday, RUQ US , abd CT, and LFTs were unremarkable. Today, he was found to have total bili 3.4 , AST 192, ALT 329, alk phos 221. 1. Acute hepatic transaminitis and hyperbilirubinemia likely secondary to choledocholithiasis - NPO - IV fluid - Morphine as needed for pain - Zofran as needed for nausea - MRCP - GI consult 2. Fatty liver 3. Hyperlipidemia - Continue Crestor 4. Hepatosplenomegaly 5. GERD - Continue Nexium 6. History of headaches - Continue Elavil 7. Obesity with BMI 35.6 Problem List - Problem (1) Hyperlipidemia Code(s): E78.5 - HYPERLIPIDEMIA, UNSPECIFIED (2) Headache Code(s): R51 - HEADACHE (3) Obesity (BMI 30-39.9) Code(s): E66.9 - OBESITY, UNSPECIFIED Visit type - Emergency Visit Emergency Visit: Yes ED Registration Date: 04/29/18 Care time: The patient presented to the Emergency Department on the above date and was hospitalized for further evaluation of their emergent condition. - New Patient This patient is new to me today: Yes Date on this admission: 04/29/18 - Critical Care Critical Care patient: No Hospitalist Screening - Colonoscopy Questionnaire Colonoscopy Questionnaire: Colonoscopy Questionnaire - Patient: 50 - 75 years old and never had a screening colonoscopy: No History of colon or rectal polyps, or CA: No History of IBD, Crohn's disease or UC: No History of abdominal radiation therapy as a child: No - Relative: 1 with colon or rectal CA, or polyps at age 60 or younger: No Colon or rectal CA diagnosed at age 45 or younger: No Multiple relatives with colon or rectal CA: No - Outcome: Screening Result: Negative Screen
[2018-04-29] MEDS ORDERED: ONDANSETRON 4 MG/2 ML VIAL IVPUSH PRN (13:49)
[2018-04-29] MEDS ORDERED: MORPHINE SULFATE 2 MG/ML VIAL IVPUSH PRN (13:49)
[2018-04-29] MEDS ORDERED: SODIUM CHLORIDE 1,000 ML IV SCH (14:00)
--- NOTE | 2018-04-29 14:14 | EKG ---
Test Reason : Blood Pressure : / mmHG Vent. Rate : 076 BPM Atrial Rate : 076 BPM P-R Int : 156 ms QRS Dur : 084 ms QT Int : 396 ms P-R-T Axes : 027 -06 023 degrees QTc Int : 445 ms NORMAL SINUS RHYTHM LOW VOLTAGE QRS BORDERLINE ECG WHEN COMPARED WITH ECG OF 30-JUL-2017 08:57, NO SIGNIFICANT CHANGE WAS FOUND Confirmed by Ravi Donahue ([id number]) on 04/29/2018 2:14:01 PM Referred By: Confirmed By:Ravi Donahue
--- NOTE | 2018-04-29 16:26 | CON.GI ---
Consult Consult Specialty:: GI Referred by:: Dr Michel - History of Present Illness History of Present Illness: 42 y/o male was in ED yesterday because of severe abdominal pain neeing morphine. Today went to ED again and was noted to have mildly elevated T bili. He claims to have diffuse abdominal pain, no nausea and no vomiting, no fever. Abdominal ultrasound and Ct fail to show dilated CBD - Past Medical History Gastrointestinal: Yes: GERD - Alcohol/Substance Use Hx Alcohol Use: No - Smoking History Smoking history: Current every day smoker Have you smoked in the past 12 months: Yes Aproximately how many cigarettes per day: 20 Home Medications - Allergies Allergies/Adverse Reactions: Allergies Allergy/AdvReac Type Severity Reaction Status Date / Time No Known Allergies Allergy Verified 04/29/18 07:55 - Home Medications Home Medications: Ambulatory Orders Amitriptyline HCl [Elavil -] 40 mg PO DAILY 07/30/17 Esomeprazole Magnesium [Nexium 24Hr] 40 mg PO DAILY 07/30/17 Rosuvastatin [Crestor -] 5 mg PO HS #30 tablet 08/01/17 Dicyclomine HCl [Bentyl -] 20 mg PO Q8H PRN #21 tablet 04/28/18 Physical Exam-GI Vital Signs: Vital Signs Temperature 98 F 04/29/18 14:40 Pulse Rate 73 04/29/18 14:40 Respiratory Rate 20 04/29/18 16:12 Blood Pressure 122/74 04/29/18 14:40 O2 Sat by Pulse Oximetry (%) 99 04/29/18 16:12 Constitutional: Yes: Well Nourished Eyes: Yes: Conjunctiva Clear HENT: Yes: Atraumatic Neck: Yes: Supple Cardiovascular: Yes: Regular Rate and Rhythm Respiratory: Yes: CTA Bilaterally ...Palpate: Yes: Soft. No: Firm/Rigid, Guarding, Hepatomegaly, Mass, Pulsatile Mass, Splenomegaly, Tenderness Labs: CBC, BMP 04/29/18 08:30 04/29/18 08:30 Problem List - Problems (1) Elevated liver enzymes Assessment/Plan: r/o secondary to CBD stone vs drug toxicity R> d/c elavil and change to another medication MRCP if negative will need HIDA scan with EF to r/o chronic cholecystitis and sphincter of oddi dyskenisia Code(s): R74.8 - ABNORMAL LEVELS OF OTHER SERUM ENZYMES
[2018-04-29] MEDS: SODIUM CHLORIDE 1,000 ML IV SCH (16:47)
--- NOTE | 2018-04-29 17:56 | CON.NEURO ---
Consult Consult Specialty:: NEUROLOGY-SH[facility] Reason for Consultation:: Headache - History of Present Illness History of Present Illness: his is a 42 year old man who comes to the ED this morning complaining of abdominal pain. The pain started suddenly the evening of April 27. It was periumbilical and in his mid back. He was seen in the ED. CT was unremarkable except for splenomegaly and a small fat-containing left inguinal hernia. RUQ US showed hepatomegaly, fatty liver, no cholelithiasis or cholecystitis. Labs were normal. He was discharged on Bentyl. Last night the pain became worse. He reports it is now in the epigastric and RUQ areas. He denies fever, chills, nausea, vomiting, diarrhea, constipation, melena, rectal bleeding, jaundice. He had a similar episode in Jul 2017 which he says was attributed to fatty liver. At that time, he had an MRCP which showed fatty liver and a distended gallbladder with no gallstones. Since then, he changed his diet and lost 30 lbs in 3 months. Recently he took trips to [place] and [place] and has gained 18 lbs. Today, he has been given morphine, Pepcid, Rocephin, and Mylanta, and he says he is feeling better. Headaches-reports 5 years ago dx. with New daily Persistent Headache- had extensive w/u including l/p, rheumatology consultation etc and headache which was holocephalgic, daily, pressure type responded to Elavil prohpylaxis, he is taking 40 mg daily and it keeps PHELAN at bay. also takes daily Magnesium which he thinks may be triggering abdominal pain. - Past Medical History Gastrointestinal: Yes: GERD - Alcohol/Substance Use Hx Alcohol Use: No - Smoking History Smoking history: Current every day smoker Have you smoked in the past 12 months: Yes Aproximately how many cigarettes per day: 20 Home Medications - Allergies Allergies/Adverse Reactions: Allergies Allergy/AdvReac Type Severity Reaction Status Date / Time No Known Allergies Allergy Verified 04/29/18 07:55 - Home Medications Home Medications: Ambulatory Orders Amitriptyline HCl [Elavil -] 40 mg PO DAILY 07/30/17 Esomeprazole Magnesium [Nexium 24Hr] 40 mg PO DAILY 07/30/17 Rosuvastatin [Crestor -] 5 mg PO HS #30 tablet 08/01/17 Dicyclomine HCl [Bentyl -] 20 mg PO Q8H PRN #21 tablet 04/28/18 Physical Exam-Neuro Vital Signs: Vital Signs Temperature 98 F 04/29/18 14:40 Pulse Rate 73 04/29/18 14:40 Respiratory Rate 20 04/29/18 16:12 Blood Pressure 122/74 04/29/18 14:40 O2 Sat by Pulse Oximetry (%) 99 04/29/18 16:12 Labs: CBC, BMP 04/29/18 08:30 04/29/18 08:30 Assessment/Plan Pt. with likely chronic tension headaches, doing well well with Elavil prophylaxis, would cont. ?? Mg+ 400mg triggering abd.pain-i have asked pt. to skip a few doses of Mg= and see what happens, if he needs to take Mg+ have suggested Migravent 1 tab daily or Centrum 1 daily both of which have a smaller dose of Mg+ in case his PHELAN returns without Mg+. Please call for further assistance. Thank you, Theron Gomez MD
[2018-04-30] MEDS: SODIUM CHLORIDE 1,000 ML IV SCH ×2 (05:56)
[2018-04-30 07:37] LABS: ALBUMIN 3.6 g/dl (3.4-5.0); ANION GAP 5 (8-16); BILIRUBIN,DIRECT 0.6 mg/dL (0.0-0.2); BILIRUBIN,TOTAL 1.1 mg/dL (0.2-1.0); BLOOD UREA NITROGEN 9 mg/dL (7-18); CALCIUM 8.7 mg/dL (8.5-10.1); CHLORIDE 106 mmol/L (98-107); CO2 29 mmol/L (21-32); CREATININE 0.9 mg/dL (0.7-1.3); GLUCOSE,RANDOM 89 mg/dL (74-106); MAGNESIUM 2.1 mg/dL (1.8-2.4); SGOT/AST 75 U/L (15-37); SGPT/ALT 244 U/L (12-78); SODIUM 140 mmol/L (136-145); TOT PROT 6.6 g/dl (6.4-8.2)
[2018-04-30 07:38] LABS: ALK PHOS 193 U/L (45-117)
[2018-04-30 08:17] LABS: HEMATOCRIT 37.1 % (35.4-49); HEMOGLOBIN 12.6 GM/dL (11.7-16.9); MCH 28.8 pg (25.7-33.7); MCHC 33.9 g/dl (32.0-35.9); MEAN CELL VOLUME 84.9 fl (80-96); PLATELET COUNT 137 K/MM3 (134-434); RBC 4.37 M/mm3 (4.00-5.60); RDW 14.4 % (11.9-15.9); WHITE BLOOD COUNT 4.5 K/mm3 (4.0-10.0)
[2018-04-30 08:38] LABS: ALBUMIN 3.7 g/dl (3.4-5.0); ALK PHOS 207 U/L (45-117); ANION GAP 7 (8-16); BILIRUBIN,TOTAL 1.1 mg/dL (0.2-1.0); BLOOD UREA NITROGEN 9 mg/dL (7-18); CALCIUM 8.3 mg/dL (8.5-10.1); CHLORIDE 108 mmol/L (98-107); CO2 27 mmol/L (21-32); CREATININE 0.9 mg/dL (0.7-1.3); GLUCOSE,RANDOM 85 mg/dL (74-106); SGOT/AST 73 U/L (15-37); SGPT/ALT 245 U/L (12-78); SODIUM 142 mmol/L (136-145); TOT PROT 6.7 g/dl (6.4-8.2)
[2018-04-30] MEDS: URSODIOL 300 MG CAPSULE PO SCH ×2 (09:19→21:46)
[2018-04-30] MEDS ORDERED: PANTOPRAZOLE 40 MG TABLET (FP) PO SCH (10:00)
[2018-04-30] MEDS ORDERED: AMITRIPTYLINE HCL 10 MG TABLET (FP) PO SCH ×3 (10:00→22:00)
[2018-04-30] MEDS ORDERED: PATIENT'S OWN MEDICATION (NON-FORMULARY) (Esomeprazole Magnesium [Nexium 24hr] 40 MG) PO SCH (10:00)
--- NOTE | 2018-04-30 11:16 | PN ---
Physical Exam: SUBJECTIVE: Patient seen and examined at bedside. Has had two "black" stools today, one at 6am, one at 9am. He also has burning abdominal pain which started this morning, is continuous, and "very uncomfortable." Denies h/o PUD, GI bleed or any other bleeding disorders. Never had colonoscopy Mother - cholecystctomy - 50s Sister - cholecystectomy - 20s OBJECTIVE: Vital Signs Period Temp Pulse Resp BP Sys/Hilliard Pulse Ox Last 24 Hr 98 F-98.5 F 73-86 18-21 106-139/66-74 99-100 GENERAL: The patient is awake, alert, and fully oriented, in mild distress from abdominal burning-type pain. LUNGS: Breath sounds equal, clear to auscultation bilaterally, no wheezes, no crackles, no accessory muscle use. HEART: Regular rate and rhythm, S1, S2 ABDOMEN: Soft, tender over epigastrum, RUQ; hypoactive bowel sounds EXTREMITIES: 2+ pulses, warm, well-perfused, no edema. No calf tenderness. NEUROLOGICAL: Cranial nerves II through XII grossly intact. Normal speech, steady gait Laboratory Results - last 24 hr 04/29/18 04/30/18 04/30/18 08:30 06:30 06:30 WBC RBC Hgb Hct MCV MCH MCHC RDW Plt Count MPV Sodium 139 140 Potassium 4.0 4.0 Chloride 105 106 Carbon Dioxide 26 29 Anion Gap 8 5 L BUN 13 9 Creatinine 0.9 0.9 Creat Clearance w eGFR > 60 > 60 Random Glucose 124 H 89 D Hemoglobin A1c % 5.3 D Calcium 9.0 8.7 Magnesium 2.1 2.1 Total Bilirubin 3.4 H D 1.1 H D Direct Bilirubin 2.4 H 0.6 H D AST 192 H D 75 H D ALT 329 H D 244 H D Alkaline Phosphatase 221 H D 193 H D Total Protein 7.2 6.6 Albumin 3.9 3.6 Total Amylase 37 Lipase 123 04/30/18 04/30/18 08:00 08:00 WBC 4.5 RBC 4.37 Hgb 12.6 Hct 37.1 MCV 84.9 MCH 28.8 MCHC 33.9 RDW 14.4 Plt Count 137 MPV 9.0 Sodium 142 Potassium 4.0 Chloride 108 H Carbon Dioxide 27 Anion Gap 7 L BUN 9 Creatinine 0.9 Creat Clearance w eGFR > 60 Random Glucose 85 Hemoglobin A1c % Calcium 8.3 L Magnesium Total Bilirubin 1.1 H Direct Bilirubin AST 73 H ALT 245 H Alkaline Phosphatase 207 H D Total Protein 6.7 Albumin 3.7 Total Amylase Lipase Active Medications Generic Name Dose Route Start Last Admin Trade Name Freq PRN Reason Stop Dose Admin Sodium Chloride 1,000 mls @ 150 mls/hr 04/29/18 16:15 04/30/18 05:56 Normal Saline - IV 05/03/18 22:54 150 mls/hr ASDIR YOANA Administration Morphine Sulfate 2 mg 04/29/18 13:49 Morphine Sulfate IVPUSH Q4H PRN PAIN LEVEL 6-10 Ondansetron HCl 4 mg 04/29/18 13:49 Zofran Injection IVPUSH Q6H PRN NAUSEA Pantoprazole Sodium 40 mg 04/30/18 10:00 04/30/18 09:19 Protonix - PO 40 mg DAILY YOANA Administration Ursodiol 300 mg 04/29/18 11:00 04/30/18 09:19 Actigal - PO 300 mg BID YOANA Administration Imaging 07/31/17 MRCP: distended GB; no duct dilitation; very fatty liver 04/28/18 CTAP: no acute process 04/28/18 US abd: no evidence cholecystitis or cholelithiasis 04/29/18 US abd: no duct dilitation ASSESSMENT/PLAN 42 year-old male with a PMH significant for HLD, GERD, fatty liver, and chronic headache. Presented with abdominal pain. Acute hepatic transaminitis and hyperbilirubinemia likely secondary to choledocholilithiasis --Total bili peak 3.4, now 1.1; transaminases trending down --MRCP done, pendng dictation; if negative will need HIDA scan with EF to r/ o chronic cholecystitis and sphincter of oddi dyskenisia --continue ursodiol --morphine, Zofran PRN --GI following Black stool --may be medication related but concerning that abdominal pain is worse today --type and screen --Protonix drip --cbc now --IV fluids --NPO Chronic tension headache --continue amitriptyline --avoid Mg for now FEN Fluids: D51/2 @ 125mL/hr Electrolytes: replete as indicated Nutrition: NPO DVT prophylaxis: SCDs only due to possible procedure, oob, ambulation Dispo: continues to require inpatient care. Full code. Visit type - Emergency Visit Emergency Visit: Yes ED Registration Date: 04/29/18 Care time: The patient presented to the Emergency Department on the above date and was hospitalized for further evaluation of their emergent condition. - New Patient This patient is new to me today: Yes Date on this admission: 04/30/18 - Critical Care Critical Care patient: No
[2018-04-30] MEDS ORDERED: DEXTROSE 5%-0.45% SALINE 1,000 ML IV SCH (13:30)
[2018-04-30] MEDS ORDERED: AMITRIPTYLINE HCL 10 MG TABLET (FP) PO STA (13:47)
[2018-04-30] MEDS: DEXTROSE 5%-0.45% SALINE 1,000 ML IV SCH (14:23)
[2018-04-30 15:07] LABS: HEMOGLOBIN 12.7 GM/dL (11.7-16.9); MCH 28.4 pg (25.7-33.7); MCHC 33.5 g/dl (32.0-35.9); MEAN CELL VOLUME 84.8 fl (80-96); MEAN PLT VOLUME 8.8 fl (7.5-11.1); PLATELET COUNT 155 K/MM3 (134-434); RBC 4.48 M/mm3 (4.00-5.60); RDW 14.1 % (11.9-15.9); WHITE BLOOD COUNT 4.1 K/mm3 (4.0-10.0)
[2018-04-30] MEDS: PANTOPRAZOLE SODIUM 160 MG in SODIUM CHLORIDE 250 ML IVPB SCH (15:20)
[2018-04-30] MEDS ORDERED: cefTRIAXone SODIUM 1 GM VIAL ONE (18:08)
[2018-04-30] MEDS ORDERED: DEXTROSE 5%-WATER - 50 ML IVPB ONE (18:09)
[2018-04-30] MEDS: CEFTRIAXONE 1 GM in DEXTROSE 5%-WATER - 50 ML IVPB SCH (18:10)
[2018-05-01] MEDS: DEXTROSE 5%-0.45% SALINE 1,000 ML IV SCH ×2 (04:20→14:03)
[2018-05-01 09:33] LABS: BASO % 0.6 % (0-2.0); HEMATOCRIT 37.3 % (35.4-49); HEMOGLOBIN 12.5 GM/dL (11.7-16.9); LYMPH % 37.2 % (8-40); MCH 28.7 pg (25.7-33.7); MCHC 33.7 g/dl (32.0-35.9); MEAN CELL VOLUME 85.2 fl (80-96); MEAN PLT VOLUME 8.3 fl (7.5-11.1); NEUT % 53.2 % (42.8-82.8); PLATELET COUNT 133 K/MM3 (134-434); RBC 4.37 M/mm3 (4.00-5.60); RDW 14.1 % (11.9-15.9); WHITE BLOOD COUNT 3.9 K/mm3 (4.0-10.0)
[2018-05-01] MEDS ORDERED: PT OWN MED DRAWER 7, Y5N ONE (09:40)
[2018-05-01] MEDS ORDERED: cefTRIAXone SODIUM 1 GM VIAL ONE (09:41)
[2018-05-01] MEDS ORDERED: DEXTROSE 5%-WATER - 50 ML IVPB ONE (09:41)
[2018-05-01] MEDS: URSODIOL 300 MG CAPSULE PO SCH ×2 (09:43→21:52)
[2018-05-01] MEDS: AMITRIPTYLINE HCL 10 MG TABLET (FP) PO SCH (09:44)
[2018-05-01] MEDS: CEFTRIAXONE 1 GM in DEXTROSE 5%-WATER - 50 ML IVPB SCH (09:45)
[2018-05-01] MEDS: PANTOPRAZOLE SODIUM 160 MG in SODIUM CHLORIDE 250 ML IVPB SCH (09:46)
[2018-05-01 09:54] LABS: ALBUMIN 3.6 g/dl (3.4-5.0); BILIRUBIN,DIRECT 0.5 mg/dL (0.0-0.2)
[2018-05-01 09:57] LABS: BILIRUBIN,TOTAL 0.9 mg/dL (0.2-1.0); TOT PROT 6.7 g/dl (6.4-8.2)
[2018-05-01 10:00] LABS: ANION GAP 6 (8-16); BLOOD UREA NITROGEN 7 mg/dL (7-18); CALCIUM 8.6 mg/dL (8.5-10.1); CHLORIDE 108 mmol/L (98-107); CO2 28 mmol/L (21-32); GLUCOSE,RANDOM 104 mg/dL (74-106); MAGNESIUM 2.2 mg/dL (1.8-2.4); SODIUM 142 mmol/L (136-145)
--- NOTE | 2018-05-01 13:16 | PN ---
Physical Exam: SUBJECTIVE: Patient seen and examined OBJECTIVE: Vital Signs Period Temp Pulse Resp BP Sys/Hilliard Pulse Ox Last 24 Hr 97.7 F-98.6 F 76-86 20-22 106-122/67-80 100 GENERAL: The patient is awake, alert, and fully oriented, in mild distress from abdominal burning-type pain. LUNGS: Breath sounds equal, clear to auscultation bilaterally, no wheezes, no crackles, no accessory muscle use. HEART: Regular rate and rhythm, S1, S2 ABDOMEN: Soft, tender over epigastrum, RUQ; hypoactive bowel sounds EXTREMITIES: 2+ pulses, warm, well-perfused, no edema. No calf tenderness. NEUROLOGICAL: Cranial nerves II through XII grossly intact. Normal speech, steady gait Laboratory Results - last 24 hr 04/30/18 04/30/18 04/30/18 14:30 14:30 18:15 WBC 4.1 RBC 4.48 Hgb 12.7 Hct 38.0 MCV 84.8 MCH 28.4 MCHC 33.5 RDW 14.1 Plt Count 155 MPV 8.8 Absolute Neuts (auto) Neutrophils % Lymphocytes % Monocytes % Eosinophils % Basophils % Nucleated RBC % Sodium Potassium Chloride Carbon Dioxide Anion Gap BUN Creatinine Creat Clearance w eGFR Random Glucose Calcium Magnesium Total Bilirubin Direct Bilirubin AST ALT Alkaline Phosphatase Total Protein Albumin Blood Type B POSITIVE B POSITIVE Antibody Screen Negative 05/01/18 05/01/18 05/01/18 09:15 09:15 09:15 WBC 3.9 L RBC 4.37 Hgb 12.5 Hct 37.3 MCV 85.2 MCH 28.7 MCHC 33.7 RDW 14.1 Plt Count 133 L MPV 8.3 Absolute Neuts (auto) 2.1 Neutrophils % 53.2 D Lymphocytes % 37.2 D Monocytes % 7.0 Eosinophils % 2.0 D Basophils % 0.6 Nucleated RBC % 0 Sodium 142 Potassium 4.0 Chloride 108 H Carbon Dioxide 28 Anion Gap 6 L BUN 7 Creatinine 1.0 Creat Clearance w eGFR > 60 Random Glucose 104 D Calcium 8.6 Magnesium 2.2 Total Bilirubin 0.9 Direct Bilirubin 0.5 H AST 40 H D ALT 191 H D Alkaline Phosphatase 205 H Total Protein 6.7 Albumin 3.6 Blood Type Antibody Screen Active Medications Generic Name Dose Route Start Last Admin Trade Name Freq PRN Reason Stop Dose Admin Amitriptyline HCl 40 mg 05/01/18 10:00 05/01/18 09:44 Elavil - PO 40 mg DAILY YOANA Administration Pantoprazole Sodium 160 mg/ 250 mls @ 12.5 mls/hr 04/30/18 14:00 05/01/18 09: 46 Sodium Chloride IVPB 12.5 mls/hr Q20H YOANA Administration 8 MG/HR Dextrose/Sodium Chloride 1,000 mls @ 125 mls/hr 04/30/18 14:00 05/01/18 04:20 D5-1/2ns - IV 125 mls/hr ASDIR YOANA Administration Ceftriaxone Sodium 1 gm/ 50 mls @ 100 mls/hr 04/30/18 16:30 05/01/18 09:45 Dextrose IVPB 100 mls/hr DAILY YOANA Administration Protocol Metronidazole 500 mg in 100 mls @ 100 mls/hr 04/30/18 18:00 05/01/18 09:44 Flagyl 500mg Premixed Ivpb - IVPB 100 mls/hr Q8H-IV YOANA Administration Morphine Sulfate 2 mg 04/29/18 13:49 Morphine Sulfate IVPUSH Q4H PRN PAIN LEVEL 6-10 Ondansetron HCl 4 mg 04/29/18 13:49 Zofran Injection IVPUSH Q6H PRN NAUSEA Ursodiol 300 mg 04/29/18 11:00 05/01/18 09:43 Actigal - PO 300 mg BID YOANA Administration Imaging 04/28/18 CTAP: no acute process 04/28/18 US abd: no evidence cholecystitis or cholelithiasis 04/29/18 US abd: no duct dilitation 04/30/18 MRCP: ASSESSMENT/PLAN 42 year-old male with a PMH significant for HLD, GERD, fatty liver, and chronic headache. Presented with abdominal pain. Acute hepatic transaminitis and hyperbilirubinemia likely secondary to choledocholilithiasis --Total bili peak 3.4, now 0.9, transaminases trending down --04/30 MRCP: significant gallbladder distension with multiple gallstones, mild wall thickening; CBD 6-7mm with filling defects in the distal CBD; mild intrahepatic biliary ductal dilitation --ERCP tomorrow with Dr. Pace --continue ursodiol --burning-type gastric pain yesterday relieved with protonix drip, will continue --morphine, Zofran PRN --continue ceftriaxone (day #3) and metronidazole (day #2) Black stool --no further episodes --likely medication related --h/h stable Chronic tension headache --continue amitriptyline --avoid Mg for now FEN Fluids: D51/2 @ 125mL/hr Electrolytes: replete as indicated Nutrition: clears; NPO after midnight DVT prophylaxis: SCDs only due to ERCP tomorrow; oob, ambulation Dispo: continues to require inpatient care. Full code. Visit type - Emergency Visit Emergency Visit: Yes ED Registration Date: 04/29/18 Care time: The patient presented to the Emergency Department on the above date and was hospitalized for further evaluation of their emergent condition. - New Patient This patient is new to me today: No - Critical Care Critical Care patient: No
[2018-05-02] MEDS: DEXTROSE 5%-0.45% SALINE 1,000 ML IV SCH ×2 (00:55→12:29)
[2018-05-02] MEDS: PANTOPRAZOLE SODIUM 160 MG in SODIUM CHLORIDE 250 ML IVPB SCH (05:52)
--- NOTE | 2018-05-02 07:24 | PN ---
Physical Exam: SUBJECTIVE: Patient was off the floor. Laboratory Results - last 24 hr 05/01/18 05/01/18 05/01/18 09:15 09:15 09:15 WBC 3.9 L RBC 4.37 Hgb 12.5 Hct 37.3 MCV 85.2 MCH 28.7 MCHC 33.7 RDW 14.1 Plt Count 133 L MPV 8.3 Absolute Neuts (auto) 2.1 Neutrophils % 53.2 D Lymphocytes % 37.2 D Monocytes % 7.0 Eosinophils % 2.0 D Basophils % 0.6 Nucleated RBC % 0 Sodium 142 Potassium 4.0 Chloride 108 H Carbon Dioxide 28 Anion Gap 6 L BUN 7 Creatinine 1.0 Creat Clearance w eGFR > 60 Random Glucose 104 D Calcium 8.6 Magnesium 2.2 Total Bilirubin 0.9 Direct Bilirubin 0.5 H AST 40 H D ALT 191 H D Alkaline Phosphatase 205 H Total Protein 6.7 Albumin 3.6 Active Medications Generic Name Dose Route Start Last Admin Trade Name Freq PRN Reason Stop Dose Admin Amitriptyline HCl 40 mg 05/01/18 10:00 05/01/18 09:44 Elavil - PO 40 mg DAILY YOANA Administration Pantoprazole Sodium 160 mg/ 250 mls @ 12.5 mls/hr 04/30/18 14:00 05/02/18 05: 52 Sodium Chloride IVPB 12.5 mls/hr Q20H YOANA Administration 8 MG/HR Dextrose/Sodium Chloride 1,000 mls @ 125 mls/hr 04/30/18 14:00 05/02/18 00:55 D5-1/2ns - IV 125 mls/hr ASDIR YOANA Administration Ceftriaxone Sodium 1 gm/ 50 mls @ 100 mls/hr 04/30/18 16:30 05/01/18 09:45 Dextrose IVPB 100 mls/hr DAILY YOANA Administration Protocol Metronidazole 500 mg in 100 mls @ 100 mls/hr 04/30/18 18:00 05/02/18 01:00 Flagyl 500mg Premixed Ivpb - IVPB 100 mls/hr Q8H-IV YOANA Administration Morphine Sulfate 2 mg 04/29/18 13:49 Morphine Sulfate IVPUSH Q4H PRN PAIN LEVEL 6-10 Ondansetron HCl 4 mg 04/29/18 13:49 Zofran Injection IVPUSH Q6H PRN NAUSEA Ursodiol 300 mg 04/29/18 11:00 05/01/18 21:52 Actigal - PO 300 mg BID YOANA Administration ASSESSMENT/PLAN 42 year-old male with a PMH significant for HLD, GERD, fatty liver, and chronic headache. Presented with abdominal pain. Acute hepatic transaminitis and hyperbilirubinemia likely secondary to choledocholilithiasis --Total bili peak 3.4, now 0.6, transaminases continue to trend down --04/30 MRCP: significant gallbladder distension with multiple gallstones, mild wall thickening; CBD 6-7mm with filling defects in the distal CBD; mild intrahepatic biliary ductal dilitation --ERCP today with Dr. Pace: incomplete; needs EUS --continue ursodiol --continue ceftriaxone (day #4) and metronidazole (day #3) Black stool --no further episodes --likely medication related --h/h stable Chronic tension headache --continue amitriptyline --avoid Mg for now FEN Fluids: D51/2 @ 125mL/hr - continue post ERCP Electrolytes: replete as indicated Nutrition: regular diet DVT prophylaxis: SCDs only due to ERCP tomorrow; oob, ambulation Dispo: discussed with Dr. Pace; if tolerates food and remains pain free, can discharge tomorrow with outpatient followup in his office next Monday or Monday. Discussed plan with and mother. Full code. Visit type - Emergency Visit Emergency Visit: Yes ED Registration Date: 04/29/18 Care time: The patient presented to the Emergency Department on the above date and was hospitalized for further evaluation of their emergent condition. - New Patient This patient is new to me today: No - Critical Care Critical Care patient: No
[2018-05-02 07:27] LABS: BASO % 0.6 % (0-2.0); EOS % 2.3 % (0-4.5); HEMATOCRIT 35.5 % (35.4-49); HEMOGLOBIN 12.1 GM/dL (11.7-16.9); LYMPH % 31.6 % (8-40); MCHC 34.1 g/dl (32.0-35.9); MEAN CELL VOLUME 85.1 fl (80-96); MEAN PLT VOLUME 8.7 fl (7.5-11.1); MONO % 5.9 % (3.8-10.2); NEUT % 59.6 % (42.8-82.8); PLATELET COUNT 137 K/MM3 (134-434); RBC 4.17 M/mm3 (4.00-5.60); RDW 13.8 % (11.9-15.9); WHITE BLOOD COUNT 4.7 K/mm3 (4.0-10.0)
[2018-05-02 07:57] LABS: ALBUMIN 3.6 g/dl (3.4-5.0); ANION GAP 6 (8-16); BLOOD UREA NITROGEN 7 mg/dL (7-18); CALCIUM 8.7 mg/dL (8.5-10.1); CHLORIDE 105 mmol/L (98-107); CO2 29 mmol/L (21-32); GLUCOSE,RANDOM 109 mg/dL (74-106); POTASSIUM 3.4 mmol/L (3.5-5.1); SODIUM 140 mmol/L (136-145)
[2018-05-02 08:01] LABS: ALK PHOS 184 U/L (45-117); BILIRUBIN,TOTAL 0.6 mg/dL (0.2-1.0); SGOT/AST 29 U/L (15-37); SGPT/ALT 143 U/L (12-78); TOT PROT 6.5 g/dl (6.4-8.2)
[2018-05-02] MEDS ORDERED: PT OWN MED DRAWER 7, Y5N ONE (09:43)
[2018-05-02] MEDS ORDERED: cefTRIAXone SODIUM 1 GM VIAL ONE (09:44)
[2018-05-02] MEDS ORDERED: DEXTROSE 5%-WATER - 50 ML IVPB ONE (09:44)
[2018-05-02] MEDS: POTASSIUM CHLORIDE TABS 20 MEQ TABLET.ER (FP) PO SCH ×2 (09:46→15:27)
[2018-05-02] MEDS: AMITRIPTYLINE HCL 10 MG TABLET (FP) PO SCH (09:47)
[2018-05-02] MEDS: URSODIOL 300 MG CAPSULE PO SCH (09:51)
[2018-05-02] MEDS: CEFTRIAXONE 1 GM in DEXTROSE 5%-WATER - 50 ML IVPB SCH (09:52)
[2018-05-02] MEDS ORDERED: PROPOFOL 20 ML ONE (14:22)
[2018-05-02] MEDS ORDERED: ONDANSETRON 4 MG/2 ML VIAL ONE (14:22)
[2018-05-02] MEDS ORDERED: GLYCOPYRROLATE 0.2 MG/1 ML VIAL ONE ×3 (14:22)
[2018-05-02] MEDS ORDERED: NEOSTIGMINE METHYLSULFATE 0.5 MG/ML - 10 ML MDV ONE (14:22)
[2018-05-02] MEDS ORDERED: ROCURONIUM BROMIDE 50 MG/5 ML VIAL ONE (14:22)
[2018-05-02] MEDS ORDERED: DEXAMETHASONE SOD PHOSPHATE 10 MG/1 ML VIAL ONE (14:23)
--- NOTE | 2018-05-02 14:26 | PN ---
Progress Note (short form) - Note Progress Note: discussed findings of MRCP with the patient and explained risk and benefits of ERCP including pancreatitis which could be severe and life threatenning. Complications of anesthesia discussed. Problem List - Problems (1) Elevated liver enzymes Code(s): R74.8 - ABNORMAL LEVELS OF OTHER SERUM ENZYMES
[2018-05-02] MEDS ORDERED: INDOMETHACIN 50 MG RECTAL SUPPOSITORY PR ONE ×2 (15:15→15:24)
[2018-05-02] MEDS ORDERED: DEXTROSE 5%-0.45% SALINE 1,000 ML IV SCH (16:19)
[2018-05-02] MEDS ORDERED: ONDANSETRON 4 MG/2 ML VIAL IVPUSH PRN (16:19)
[2018-05-02] MEDS ORDERED: MORPHINE SULFATE 2 MG/ML VIAL IVPUSH PRN (16:19)
[2018-05-02] MEDS ORDERED: POTASSIUM CHLORIDE TABS 20 MEQ TABLET.ER (FP) PO ONE (19:00)
[2018-05-02] MEDS ORDERED: URSODIOL 300 MG CAPSULE PO SCH (22:00)
[2018-05-02 23:12] VITALS: BP 121/87; PULSE 109; TEMP 98.2
[2018-05-03] MEDS ORDERED: PANTOPRAZOLE SODIUM 160 MG in SODIUM CHLORIDE 250 ML IVPB SCH (02:00)
[2018-05-03 07:18] LABS: BASO % 0.1 % (0-2.0); EOS % 0.2 % (0-4.5); HEMATOCRIT 36.1 % (35.4-49); HEMOGLOBIN 12.6 GM/dL (11.7-16.9); LYMPH % 12.3 % (8-40); MCH 29.3 pg (25.7-33.7); MCHC 34.9 g/dl (32.0-35.9); MEAN PLT VOLUME 8.8 fl (7.5-11.1); MONO % 3.6 % (3.8-10.2); NEUT % 83.8 % (42.8-82.8); PLATELET COUNT 176 K/MM3 (134-434); RDW 13.8 % (11.9-15.9); WHITE BLOOD COUNT 6.1 K/mm3 (4.0-10.0)
[2018-05-03 07:47] LABS: ALBUMIN 3.7 g/dl (3.4-5.0); ANION GAP 7 (8-16); BLOOD UREA NITROGEN 12 mg/dL (7-18); CALCIUM 9.2 mg/dL (8.5-10.1); CHLORIDE 107 mmol/L (98-107); CO2 25 mmol/L (21-32); GLUCOSE,RANDOM 171 mg/dL (74-106); MAGNESIUM 2.1 mg/dL (1.8-2.4); POTASSIUM 4.3 mmol/L (3.5-5.1); SODIUM 139 mmol/L (136-145)
[2018-05-03 07:51] LABS: ALK PHOS 176 U/L (45-117); BILIRUBIN,TOTAL 0.4 mg/dL (0.2-1.0); SGOT/AST 20 U/L (15-37); SGPT/ALT 117 U/L (12-78); TOT PROT 6.9 g/dl (6.4-8.2)
--- NOTE | 2018-05-03 08:44 | DS ---
Physical Exam: SUBJECTIVE: Patient seen and examined OBJECTIVE: Vital Signs Period Temp Pulse Resp BP Sys/Hilliard Pulse Ox Last 24 Hr 97.5 F-98.4 F 66-109 16-21 107-121/60-87 96-100 PHYSICAL EXAM GENERAL: The patient is awake, alert, and fully oriented, in no acute distress. HEAD: Normal with no signs of trauma. EYES: PERRL, extraocular movements intact, sclera anicteric, conjunctiva clear. ENT: Ears normal, nares patent, oropharynx clear without exudates, moist mucous membranes. NECK: Trachea midline, full range of motion, supple. LUNGS: Breath sounds equal, clear to auscultation bilaterally, no wheezes, no crackles, no accessory muscle use. HEART: Regular rate and rhythm, S1, S2 without murmur, rub or gallop. ABDOMEN: Soft, nontender, nondistended, normoactive bowel sounds, no guarding, no rebound, no hepatosplenomegaly, no masses. EXTREMITIES: 2+ pulses, warm, well-perfused, no edema. NEUROLOGICAL: Cranial nerves II through XII grossly intact. Normal speech, gait not observed. PSYCH: Normal mood, normal affect. SKIN: Warm, dry, normal turgor, no rashes or lesions noted. LABS Laboratory Results - last 24 hr 05/03/18 05/03/18 06:30 06:30 WBC 6.1 RBC 4.30 Hgb 12.6 Hct 36.1 MCV 84.0 MCH 29.3 MCHC 34.9 RDW 13.8 Plt Count 176 D MPV 8.8 Absolute Neuts (auto) 5.1 Neutrophils % 83.8 H D Lymphocytes % 12.3 D Monocytes % 3.6 L Eosinophils % 0.2 D Basophils % 0.1 Nucleated RBC % 0 Sodium 139 Potassium 4.3 D Chloride 107 Carbon Dioxide 25 Anion Gap 7 L BUN 12 Creatinine 1.0 Creat Clearance w eGFR > 60 Random Glucose 171 H D Calcium 9.2 Magnesium 2.1 Total Bilirubin 0.4 AST 20 D ALT 117 H Alkaline Phosphatase 176 H Total Protein 6.9 Albumin 3.7 HOSPITAL COURSE: Date of Admission:04/29/18 Date of Discharge: 05/03/18 Minutes to complete discharge: 35 Discharge Summary Reason For Visit: PMH OF GERD, FATTY LIVER,HLD Current Active Problems Abdominal pain (Acute) Choledocholithiasis (Acute) Elevated alkaline phosphatase level (Acute) Elevated liver enzymes (Acute) Hyperbilirubinemia (Acute) Transaminitis (Acute) Chronic GERD (Chronic) Fatty liver (Chronic) Headache (Chronic) Hyperlipidemia (Chronic) Obesity (BMI 30-39.9) (Chronic) Condition: Stable - Instructions Referrals: Sixto Pace MD [Primary Care Provider] - - Home Medications Comprehensive Discharge Medication List: Ambulatory Orders Amitriptyline HCl [Elavil -] 40 mg PO DAILY 07/30/17 Esomeprazole Magnesium [Nexium 24Hr] 40 mg PO DAILY 07/30/17 Rosuvastatin [Crestor -] 5 mg PO HS #30 tablet 08/01/17 Dicyclomine HCl [Bentyl -] 20 mg PO Q8H PRN #21 tablet 04/28/18 This patient is new to me today: No Emergency Visit: Yes ED Registration Date: 04/29/18 Care time: The patient presented to the Emergency Department on the above date and was hospitalized for further evaluation of their emergent condition. Critical Care patient: No - Discharge Referral Referred to [facility] Med [facility].C[facility] No
[2018-05-03] MEDS ORDERED: CEFTRIAXONE 1 GM in DEXTROSE 5%-WATER - 50 ML IVPB SCH (10:00)
[2018-05-03] MEDS ORDERED: AMITRIPTYLINE HCL 10 MG TABLET (FP) PO SCH (10:00)
== END 2018-05-03 10:43 | disposition home or self-care (01) ==
LOC: JER 07:27 → JERBED 11:03 → J6S 15:15
PROVIDERS: ADMIT Internal Medicine; ATTEND Nurse Practitioner Acute Care
PROC: BD19ZZZ Fluoroscopy of Duodenum (ICD-10-PCS; 2018-05-02)
PROC: 0DJ08ZZ Inspection of Upper Intestinal Tract, Via Natural or Artificial Opening Endoscopic (ICD-10-PCS; principal; 2018-05-02 14:30)
DX: K80.62 Calculus of gallbladder and bile duct with acute cholecystitis without obstruction (principal); K76.0 Fatty (change of) liver, not elsewhere classified; R16.1 Splenomegaly, not elsewhere classified; K21.9 Gastro-esophageal reflux disease without esophagitis; E78.5 Hyperlipidemia, unspecified; F17.210 Nicotine dependence, cigarettes, uncomplicated; K40.90 Unilateral inguinal hernia, without obstruction or gangrene, not specified as recurrent; K82.8 Other specified diseases of gallbladder; E66.9 Obesity, unspecified; Z68.35 Body mass index [BMI] 35.0-35.9, adult; G44.209 Tension-type headache, unspecified, not intractable; R74.0 Nonspecific elevation of levels of transaminase and lactic acid dehydrogenase [LDH]; K57.10 Diverticulosis of small intestine without perforation or abscess without bleeding
CPT/HCPCS: 36415; 74181-TC; 76705-TC; 80048; 80053; 80076; 82150; 82248; 83036; 83690; 83735; 85025; 85027; 86850; 86900; 86901; 93005; 93010; 94760; 99282-25; J1100; J7030

== ENCOUNTER → 2019-01-09 | Day surgery (SDC) | payer OTHER | LOC: JASUSAT 05:15 ==

== ENCOUNTER 2019-04-28 11:57 | Emergency (ER) | payer OTHER ==
[2019-04-28 12:11] VITALS: BP 124/80; PULSE 106; TEMP 97.7; BMI 37.3
[2019-04-28] MEDS ORDERED: SODIUM CHLORIDE 0.9% 500 ML INFUS.BAG IV ONE (12:16)
--- NOTE | 2019-04-28 12:16 | PDOC ---
History of Present Illness - General Chief Complaint: Back Pain Stated Complaint: RIGHT LBP Time Seen by Provider: 04/28/19 11:59 History Source: Patient Exam Limitations: No Limitations - History of Present Illness Initial Comments: 04/28/19 12:14 Esequiel Antunez is a 43yM with PMHx of GERD and gallbladder stones presenting with right lower back pain. Pain noticed 1 week ago while he was resting. Comes/ goes. Took 3 flexeril without relief. Denies heavy lifting or trauma within past month. Denies fever, nausea, vomiting, hematuria, urinary urgency/straining /pain with urination, diarrhea, or constipation. Past History - Travel Traveled outside of the country in the last 30 days: No Close contact w/someone who was outside of country & ill: No - Past Medical History Allergies/Adverse Reactions: Allergies Allergy/AdvReac Type Severity Reaction Status Date / Time No Known Allergies Allergy Verified 04/28/19 12:00 Home Medications: Ambulatory Orders Amitriptyline HCl [Elavil -] 40 mg PO HS 07/30/17 Esomeprazole Magnesium [Nexium 24Hr] 40 mg PO DAILY 07/30/17 Ursodiol [Actigal -] 300 mg PO BID #60 capsule 05/03/18 Cyclobenzaprine HCl [Flexeril 10 mg] 10 mg PO BID PRN 7 Days #14 tablet Naproxen [Naprosyn -] 500 mg PO BID 21 Days #42 tablet 04/28/19 Anemia: No Asthma: No Cancer: No Cardiac Disorders: No CVA: No COPD: No CHF: No Dementia: No Diabetes: No GI Disorders: Yes (GERD, BILE DUCT STONE) Disorders: No HTN: No Hypercholesterolemia: Yes Liver Disease: No Seizures: No Thyroid Disease: No - Surgical History Abdominal Surgery: Yes (egd) Appendectomy: No Cardiac Surgery: No Cholecystectomy: No Lung Surgery: No Neurologic Surgery: No Orthopedic Surgery: No - Suicide/Smoking/Psychosocial Hx Smoking Status: Yes Smoking History: Current every day smoker Have you smoked in the past 12 months: Yes Number of Cigarettes Smoked Daily: 20 Information on smoking cessation initiated: Yes 'Breaking Loose' booklet given: 01/09/19 Hx Alcohol Use: No Drug/Substance Use Hx: No Substance Use Type: None Hx Substance Use Treatment: No Review of Systems - Review of Systems Constitutional: No: Chills, Fever, Malaise, Weakness HEENTM: No: Eye Pain, Ear Discharge, Nose Pain, Nose Bleeding, Throat Pain, Mouth Pain Respiratory: No: Cough, Shortness of Breath, Stridor, Productive cough Cardiac (ROS): No: Chest Pain, Edema, Lightheadedness, Palpitations, Syncope ABD/GI: No: Abdominal Distended, Constipated, Nausea, Poor Fluid Intake, Rectal Bleeding, Vomiting, Indigestion, Abdominal cramping : No: Burning, Dysuria, Discharge, Frequency, Flank Pain, Hematuria, Incontinence, Pain, Urgency, Testicular Mass, Testicular Swelling, Lesions Musculoskeletal: Yes: Muscle Pain (right lower back). No: Gout, Joint Pain, Joint Swelling Integumentary: No: Bruising, Dryness, Erythema, Flushing Neurological: No: Headache, Seizure, Tingling Psychiatric: No: Anxiety, Depression, Stressors Endocrine: No: Excessive Sweating, Flushing, Intolerance to Cold, Intolerance to Heat Hematologic/Lymphatic: No: Anemia, Blood Clots *Physical Exam - Vital Signs Last Vital Signs Temp Pulse Resp BP Pulse Ox 97.7 F 106 H 18 124/80 98 04/28/19 11:59 04/28/19 11:59 04/28/19 11:59 04/28/19 11:59 04/28/19 11:59 - Physical Exam General Appearance: Yes: Nourished, Mild Distress (anxious about back pain) HEENT: positive: EOMI, STEPHAN, Normal Voice, Hearing Grossly Normal. negative: Pale Conjunctivae, Nasal Congestion, Rhinorrhea Respiratory/Chest: positive: Lungs Clear, Normal Breath Sounds. negative: Chest Tender, Respiratory Distress, Accessory Muscle Use, Labored Respiration Cardiovascular: positive: Regular Rhythm, Regular Rate, S1, S2. negative: Edema , Murmur Gastrointestinal/Abdominal: positive: Normal Bowel Sounds, Flat, Soft. negative : Tender, Organomegaly, Distended, Guarding, Rebound, Hernia, Mass Male Genitalia: positive: normal genitalia. negative: discharge, testicular tenderness, testicular mass, epididymus tender, hernia Musculoskeletal: positive: Normal Inspection, Other (no back midline tenderness , mild discomfort with deep palpation of R lower back). negative: CVA Tenderness (R), CVA Tenderness (L) Extremity: positive: Normal Inspection Integumentary: positive: Normal Color Neurologic: positive: Fully Oriented, Alert, Normal Mood/Affect, Responsive. negative: Sensory Deficit, Confused, Disoriented ED Treatment Course - LABORATORY CBC & Chemistry Diagram: 04/28/19 12:25 04/28/19 12:25 Medical Decision Making - Medical Decision Making 04/28/19 12:32 Ordered CBC, CMP, UA, CT Given 1L NS, toradol CBC, CMP, UA normal Esequiel Antunez is a 43yM with PMHx of GERD and gallbladder stones presenting with right lower back pain. Likely MSK due to absence of fever and normal workup. No signs of UTI or kidney stones with normal UA, labs. Unlikely spinal stenosis, cauda equina d/t absence of trauma or lower extremity numbness/ parasthesia. Discharged with naproxen, flexeril, follow up with ortho *DC/Admit/Observation/Transfer Diagnosis at time of Disposition: Lower back pain Qualifiers: Chronicity: acute Back pain laterality: right Sciatica presence: without sciatica Qualified Code(s): M54.5 - Low back pain - Discharge Dispostion Disposition: HOME Condition at time of disposition: Good - Prescriptions Prescriptions: Cyclobenzaprine HCl [Flexeril 10 mg] 10 mg PO BID PRN 7 Days #14 tablet PRN Reason: Back Pain Naproxen [Naprosyn -] 500 mg PO BID 21 Days #42 tablet - Referrals Referrals: Sixto Kay MD [Primary Care Provider] - Capo Lei MD [Staff Physician] - - Patient Instructions Printed Discharge Instructions: Serious Ways to Stop Smoking, DI for Low Back Pain Additional Instructions: You were seen for lower back pain. Your lab results and imaging did not show anything concerning. Take the prescribed meds as directed for your pain. Please arrange an appointment with the referred orthopaedist for your back pain. Follow up with your primary care doctor or orthopaedist if you continue to have back pain. Come back to the ED if you have numbness, urinary problems, or vomiting - Post Discharge Activity
--- NOTE | 2019-04-28 12:39 | PDOC ---
Attending Attestation - Resident Resident Name: Anthony Fontanez - ED Attending Attestation I have performed the following: I have examined & evaluated the patient, The case was reviewed & discussed with the resident, I agree w/resident's findings & plan, Exceptions are as noted - HPI HPI: 04/28/19 12:34 43 year old male with hx of GERD, gallstones presents with right lower back pain x 1 week. Pt does not recall any physical activity or injury causing the pain. States it's a dull pain in right lower back that is intermittent. Sometimes brought on by flexing or extending the back, but not always. No fevers, chills, nausea, vomiting. Did not take any medications for these symptoms. Denies dysuria or hematuria. States that he has this right lower back discomfort. - Physicial Exam PE: 04/28/19 12:35 GENERAL: Awake, alert, and fully oriented, in no acute distress HEAD: No signs of trauma EYES: EOMI, sclera anicteric, conjunctiva clear ENT: Auricles normal inspection, hearing grossly normal, nares patent NECK: Normal ROM, supple, ABDOMEN: Soft, nontender, No guarding, no rebound. No masses BACK: Right lower back TTP. No Right sided CVA tenderness to palpation. EXTREMITIES: Normal range of motion, no edema. No clubbing or cyanosis. No cords, erythema, or tenderness NEUROLOGICAL: Cranial nerves II through XII grossly intact. Normal speech, normal gait SKIN: Warm, Dry, normal turgor, no rashes or lesions noted. - Medical Decision Making 04/28/19 12:39 Vital Signs Temp Pulse Resp BP Pulse Ox 97.7 F 106 H 18 124/80 98 04/28/19 11:59 04/28/19 11:59 04/28/19 11:59 04/28/19 11:59 04/28/19 11:59 Differential includes musculoskeletal back pain. However, renal colic within differential. labs, UA, spiral CT and reassess. 04/28/19 13:15 CBC, BMP 04/28/19 12:25 04/28/19 12:25 CMP Sodium 135 mmol/L (136-145) L 04/28/19 12:25 Potassium 3.5 mmol/L (3.5-5.1) 04/28/19 12:25 Chloride 101 mmol/L (98-107) 04/28/19 12:25 Carbon Dioxide 24 mmol/L (21-32) 04/28/19 12:25 Anion Gap 10 MMOL/L (8-16) 04/28/19 12:25 BUN 17.0 mg/dl (7-18) 04/28/19 12:25 Creatinine 0.9 mg/dl (0.55-1.3) 04/28/19 12:25 Est GFR (CKD-EPI)AfAm 121.67 04/28/19 12:25 Est GFR (CKD-EPI)NonAf 104.98 04/28/19 12:25 Random Glucose 162 mg/dl (74-106) H 04/28/19 12:25 Calcium 8.7 mg/dl (8.5-10) 04/28/19 12:25 Total Bilirubin 0.8 mg/dl (0.2-1) 04/28/19 12:25 AST 38 U/L (15-37) H 04/28/19 12:25 ALT 58 U/L (13-61) 04/28/19 12:25 Alkaline Phosphatase 87 U/L (45-117) 04/28/19 12:25 Total Protein 7.5 g/dl (6.4-8.2) 04/28/19 12:25 Albumin 4.1 g/dl (3.4-5.0) 04/28/19 12:25 04/28/19 14:33 Urine Test Results Urine Color Yellow 04/28/19 13:25 Urine Appearance Clear 04/28/19 13:25 Urine pH 7.0 (4.5-8) 04/28/19 13:25 Urine Protein Negative (NEGATIVE) 04/28/19 13:25 Urine Glucose (UA) Negative (NEGATIVE) 04/28/19 13:25 Urine Ketones Negative (NEGATIVE) 04/28/19 13:25 Urine Blood Negative (NEGATIVE) 04/28/19 13:25 Urine Nitrite Negative (NEGATIVE) 04/28/19 13:25 Urine Bilirubin Negative (NEGATIVE) 04/28/19 13:25 Ur Leukocyte Esterase Negative (NEGATIVE) 04/28/19 13:25 CT scan of the abdomen and pelvis reviewed. No acute findings. At this time, given negative findings, will treat as a lower back spasm/pain. Supportive care. NSAIDS and muscle relaxants. Follow up with orthopedics. Pt feels reassurred and agrees with plan.
[2019-04-28 12:42] LABS: BASO % 0.7 % (0-2.0); EOS % 2.6 % (0-4.5); HEMATOCRIT 42.5 % (35.4-49); HEMOGLOBIN 14.1 GM/dl (11.7-16.9); LYMPH % 30.5 % (8-40); MCH 28.5 pg (25.7-33.7); MCHC 33.1 g/dl (32.0-35.9); MEAN CELL VOLUME 86.1 fl (80-96); MEAN PLT VOLUME 8.8 fl (7.5-11.1); MONO % 3.6 % (3.8-10.2); NEUT % 62.6 % (42.8-82.8); PLATELET COUNT 212 K/MM3 (134-434); RBC 4.93 M/mm3 (4.00-5.60); RDW 13.5 % (11.9-15.9); WHITE BLOOD COUNT 7.8 K/mm3 (4.0-10.8)
[2019-04-28 12:53] LABS: ALBUMIN 4.1 g/dl (3.4-5.0); BILIRUBIN,TOTAL 0.8 mg/dl (0.2-1); CALCIUM 8.7 mg/dl (8.5-10); CREATININE 0.9 mg/dl (0.55-1.3); POTASSIUM 3.5 mmol/L (3.5-5.1); TOT PROT 7.5 g/dl (6.4-8.2)
[2019-04-28] MEDS ORDERED: KETOROLAC TROMETHAMINE 30 MG/1 ML VIAL IVPUSH ONE (13:10)
[2019-04-28] MEDS ORDERED: KETOROLAC TROMETHAMINE 30 MG/1 ML VIAL ONE (13:15)
== END 2019-04-28 14:45 | disposition home or self-care (01) ==
LOC: FER 11:57
PROC: 3E0333Z Introduction of Anti-inflammatory into Peripheral Vein, Percutaneous Approach (ICD-10-PCS; principal; 2019-04-28)
PROC: 3E0337Z Introduction of Electrolytic and Water Balance Substance into Peripheral Vein, Percutaneous Approach (ICD-10-PCS; 2019-04-28)
DX: M54.5 Low back pain (principal); K21.9 Gastro-esophageal reflux disease without esophagitis; Z87.891 Personal history of nicotine dependence; E78.00 Pure hypercholesterolemia, unspecified
CPT/HCPCS: 36415; 74176-TC; 80053; 81003; 85025; 99283-25

== ENCOUNTER 2022-02-11 18:48 | Emergency (ER) | payer OTHER ==
[2022-02-11 18:55] VITALS: BP 102/66; PULSE 80; TEMP 98; BMI 43.0
[2022-02-11] MEDS ORDERED: ACETAMINOPHEN 1000 MG/100 ML BAG IVPB ONE (20:20)
[2022-02-11] MEDS ORDERED: ACETAMINOPHEN INJECTION 100 ML IVPB ONE (20:25)
[2022-02-11 20:58] LABS: BASO % 0.8 % (0-2.0); EOS % 0.8 % (0-4.5); HEMATOCRIT 36.5 % (35.4-49); HEMOGLOBIN 12.5 GM/dL (11.7-16.9); LYMPH % 16.6 % (8-40); MCH 28.4 pg (25.7-33.7); MCHC 34.2 g/dl (32.0-35.9); MEAN CELL VOLUME 82.9 fl (80-96); MEAN PLT VOLUME 8.6 fl (7.5-11.1); MONO % 5.4 % (3.8-10.2); NEUT % 76.4 % (42.8-82.8); PLATELET COUNT 171 10^3/uL (134-434); RBC 4.41 M/mm3 (4.00-5.60); RDW 14.2 % (11.9-15.9); WHITE BLOOD COUNT 6.8 K/mm3 (4.0-10.0)
[2022-02-11 21:09] LABS: INR 1.19 (0.83-1.09); PROTHROMBIN TIME (PATIENT) 13.7 SEC (9.7-13.0)
[2022-02-11 21:15] LABS: BLOOD UREA NITROGEN 12.8 mg/dL (7-18)
[2022-02-11 21:17] LABS: CREATININE 1.1 mg/dL (0.55-1.3)
[2022-02-11 21:19] LABS: BILIRUBIN,TOTAL 0.5 mg/dL (0.2-1)
== END 2022-02-12 00:41 | disposition home or self-care (01) ==
LOC: JER 18:48
PROC: 3E033GC Introduction of Other Therapeutic Substance into Peripheral Vein, Percutaneous Approach (ICD-10-PCS; principal; 2022-02-11)
DX: K80.20 Calculus of gallbladder without cholecystitis without obstruction (principal)
CPT/HCPCS: 36415; 76705-TC; 80053; 83690; 85025; 85610; 85730; 86850; 86900; 86901; 99285-25

== ENCOUNTER 2022-03-18 04:34 | Day surgery (SDC) | payer OTHER ==
[2022-03-17 09:06] VITALS: BMI 31.1
[2022-03-18] MEDS ORDERED: BUPIVACAINE HCL/PF 0.5% (5MG/ML) 10 ML VIAL ONE (07:32)
[2022-03-18] MEDS ORDERED: SUCCINYLCHOLINE CHLORIDE 200 MG/10 ML SYRINGE ONE ×2 (07:53→09:12)
[2022-03-18] MEDS ORDERED: PROPOFOL 20 ML ONE ×2 (07:53)
[2022-03-18] MEDS ORDERED: ROCURONIUM BROMIDE 50 MG/5 ML SYRINGE ONE (07:54)
[2022-03-18] MEDS ORDERED: SUGAMMADEX SODIUM 200 MG/2 ML VIAL ONE ×2 (07:54)
[2022-03-18] MEDS ORDERED: KETAMINE HCL 200 MG/20 ML VIAL ONE (07:54)
[2022-03-18] MEDS ORDERED: MIDAZOLAM HCL 2 MG/2 ML SINGLE DOSE VIAL ONE (07:54)
[2022-03-18] MEDS ORDERED: FENTANYL CITRATE/PF 50 MCG/ML VIAL ONE ×5 (07:55→11:04)
[2022-03-18] MEDS ORDERED: ACETAMINOPHEN INJECTION 100 ML IVPB ONE (08:00)
[2022-03-18] MEDS ORDERED: ceFAZolin SODIUM 1 GM VIAL IVPB ONE (08:48)
[2022-03-18] MEDS ORDERED: BUPIVACAINE HCL/PF 0.5% (5MG/ML) 10 ML VIAL IJ ONE ×2 (09:06)
[2022-03-18] MEDS ORDERED: ONDANSETRON 4 MG/2 ML VIAL ONE (12:37)
[2022-03-18] MEDS ORDERED: oxyCODONE HCL 5 MG TABLET ONE (12:59)
[2022-03-18] MEDS ORDERED: oxyCODONE HCL 5 MG TABLET PO ONE (13:03)
[2022-03-18] MEDS ORDERED: ONDANSETRON 4 MG/2 ML VIAL IVPUSH PRN ×2 (13:08→15:02)
[2022-03-18] MEDS ORDERED: oxyCODONE HCL 5 MG TABLET PO PRN ×2 (13:08)
[2022-03-18 14:08] VITALS: BP 120/72; PULSE 84; TEMP 97
== END 2022-03-18 14:42 | disposition home or self-care (01) ==
LOC: JASU-SURG 04:34
PROVIDERS: ATTEND Surgery
PROC: 0FT44ZZ Resection of Gallbladder, Percutaneous Endoscopic Approach (ICD-10-PCS; principal; 2022-03-18 08:00)
DX: K80.10 Calculus of gallbladder with chronic cholecystitis without obstruction (principal)
CPT/HCPCS: 88304-TC; 94760